=== PATIENT | male | born 1955 | race Hispanic/Latino ===

== ENCOUNTER 2016-09-07 20:44 | Emergency (ER) | payer MEDICAID ==
[2016-09-07 20:50] VITALS: BMI 30.7
[2016-09-07 20:57] VITALS: TEMP 98.6
[2016-09-07] MEDS ORDERED: TDAP Vaccine 0.5 mL Syr IM ONE (21:00)
[2016-09-07] MEDS ORDERED: Multivitamin (MVI) 10 ML, Thiamine 100 MG, Folic Acid 1 MG in Sodium Chloride 0.9% 1,00... IV ONE (21:01)
--- NOTE | 2016-09-07 21:06 | ED PDOC ---
Arrival/HPI <Nolan Mota - Last Filed: 09/07/16 21:09> - General Historian: Patient <Quintin Alfonso - Last Filed: 09/08/16 12:22> - General Chief Complaint: Alcohol Ingestion Time Seen by Provider: 09/07/16 21:00 - History of Present Illness Narrative History of Present Illness (Text): 09/07/16 21:06 61 y/o male, pmh including brain injury, nkda, c/o fall with head and rt. knee injury x 2 hours. Pt. stated that he had 2 cans of beer about 8 hours ago, walking on the uneven side walk and fall to the posterior head and rt. knee region which causes the rt. knee abrasion, no chest pain or shortness of breath , no night sweat, no dizziness, no palpitation, no other medical or psychological complaints. (Quintin Alfonso) Past Medical History - Provider Review Nursing Documentation Reviewed: Yes - Infectious Disease Hx of Infectious Diseases: None - Neurological Other/Comment: Brain injury - Psychiatric Hx Substance Use: No - Anesthesia Hx Anesthesia: No <Quintin Alfonso - Last Filed: 09/08/16 12:22> Family/Social History - Physician Review Nursing Documentation Reviewed: Yes Family/Social History: Unknown Family HX Smoking Status: Light Smoker < 10 Cigarettes Daily Hx Alcohol Use: Yes Frequency of alcohol use: Few days per week Hx Substance Use: No <Quintin Alfonso - Last Filed: 09/08/16 12:22> Allergies/Home Meds <Nolan Mota - Last Filed: 09/07/16 21:09> <Quintin Alfonso - Last Filed: 09/08/16 12:22> Allergies/Adverse Reactions: Allergies No Known Allergies Allergy (Verified 09/07/16 20:50) Review of Systems - Review of Systems Constitutional: absent: Fatigue, Fevers Respiratory: absent: SOB, Cough Cardiovascular: absent: Chest Pain, Palpitations Gastrointestinal: absent: Abdominal Pain, Diarrhea, Nausea, Vomiting Musculoskeletal: Arthralgias. absent: Back Pain, Neck Pain, Joint Swelling, Myalgias Skin: Other (abrasion). absent: Rash, Pruritis, Skin Lesions Neurological: absent: Headache, Dizziness, Focal Weakness, Speech Changes, Facial Droop <Quintin Alfonso - Last Filed: 09/08/16 12:22> Physical Exam - Physical Exam Physical Exam Limitations: Intoxication Vital Signs Reviewed: Yes Temperature: Afebrile Blood Pressure: Normal Pulse: Regular Respiratory Rate: Normal Appearance: Positive for: Well-Appearing, Non-Toxic, Comfortable Pain Distress: None - Systems Exam Head: Present: Atraumatic, Normocephalic, Tenderness, Contusion, Swelling, Other (there is posterior occipital scalp hematom approx. 4cm diameter noted. ) . No: Ecchymosis, Abrasion, Laceration Pupils: Present: PERRL Extroacular Muscles: Present: EOMI Conjunctiva: Present: Normal Ears: Present: NORMAL TM, Normal Canal. No: Erythema Mouth: Present: Moist Mucous Membranes Neck: Present: Normal Range of Motion, Trachea Midline. No: Meningeal Signs, MIDLINE TENDERNESS, Paraspinal Tenderness, Lymphadenopathy Respiratory/Chest: Present: Clear to Auscultation, Good Air Exchange. No: Respiratory Distress, Accessory Muscle Use, Wheezes, Decreased Breath Sounds, Rales, Retracting, Rhonchi, Tachypneic, Tender to Palpation Cardiovascular: Present: Regular Rate and Rhythm, Normal S1, S2. No: Murmurs Abdomen: Present: Normal Bowel Sounds. No: Tenderness, Distention, Peritoneal Signs Back: Present: Normal Inspection Upper Extremity: Present: Normal Inspection. No: Cyanosis, Edema Lower Extremity: Present: Normal Inspection, Other (Rt knee: visible anterior abrasion approx. [id number] with no laceration gap, no oozing or discharge, mild + ttp, negative kenrick and walker signs, +DPPT pulses, capillary refill< 2 seconds, neurovascular intact. ). No: Edema Neurological: Present: GCS=15, Speech Normal, Motor Func Grossly Intact, Gait Normal, Memory Normal Skin: Present: Warm, Dry, Normal Color. No: Rashes Psychiatric: Present: Alert, Oriented x 3, Normal Insight, Normal Concentration <Qiuntin Alfonso - Last Filed: 09/08/16 12:22> Vital Signs Temp Pulse Resp BP Pulse Ox 09/08/16 01:33 92 H 18 123/73 95 09/07/16 23:30 99 H 18 110/70 98 09/07/16 20:56 98.6 F 103 H 20 107/71 97 Medical Decision Making <Nolan Mota - Last Filed: 09/07/16 21:09> - Lab Interpretations I have reviewed the lab results: Yes Interpretation: Abnormal lab values (AST 462, ALT 141, Alcohol 146) - RAD Interpretation Specimen Processor: Radiologist <Quintin Alfonso - Last Filed: 09/08/16 12:22> ED Course and Treatment: 09/07/16 21:05 -Labs -CT head/rt. knee xray -IV banana bag/tdap -Wound irrigate with normal saline, clean with betadine, bacitracin and gauze dressing, observe and reassess -Observe and reassess 09/07/16 23:48 -Labs are non-significant except elevated LFT which is likely from alcohol drinking. -CT head show no acute traumatic findings. -Lt. knee xray show no acute fracture or dislocation. -Pt. is walking with normal gait and posture, etoh level was 141 which is about 3 hours ago which he is clinically sober, request to be discharged home, will discharge home. -Discharge home with bacitracin ointment, naproxen, avoid taking tylenol, follow up with your own pmd and GI within 2 days for elevated liver enzyme, return to the ER for any new or worsening signs or symptoms. (Quintin Alfonso) - Lab Interpretations Lab Results: 09/07/16 09:30 09/07/16 09:30 Lab Results 09/07/16 09:30: Alcohol, Quantitative 146 H 09/07/16 09:30: Sodium 130 L, Potassium 3.7, Chloride 96 L, Carbon Dioxide 21, Anion Gap 17, BUN 8, Creatinine 0.6, Est GFR ( Amer) > 60, Est GFR (Non- Af Amer) > 60, Random Glucose 84, Calcium 8.2 L, Magnesium 1.9, Total Bilirubin 1.5 H, AST 462 H, ALT 141 H, Alkaline Phosphatase 85, Total Protein 7.5, Albumin 3.0, Globulin 4.5, Albumin/Globulin Ratio 0.7 L 09/07/16 09:30: WBC 5.5, RBC 3.12 L, Hgb 10.7 L, Hct 30.7 L, MCV 98.4, MCH 34.3 , MCHC 34.9, RDW 15.0 H, Plt Count 201, MPV 9.6, Gran % 63.5, Lymph % (Auto) 22.3, [place] % (Auto) 11.2 H, Eos % (Auto) 2.5, Baso % (Auto) 0.5, Gran # 3.50, Lymph # 1.2, [place] # 0.6, Eos # 0.1, Baso # 0.03 - RAD Interpretation Radiology Orders: 09/07/16 21:00 HEAD W/O CONTRAST [CT] Stat KNEE W PATELLA RIGHT 3 VIEW [RAD] Stat Rt. knee xray: no acute fracture or dislocation CT Head: no acute traumatic findings. (Quintin Alfonso) - Medication Orders Current Medication Orders: Discontinued Medications Multivitamins/Vitamin C 10 ml/Thiamine HCl 100 mg/ Folic Acid 1 mg/ Sodium Chloride 1,011.2 mls @ 250 mls/hr IV .Q4H3M ONE Stop: 09/08/16 01:03 Last Admin: 09/07/16 21:40 Dose: 250 mls/hr Tetanus/Reduced Diphtheria/Acell Pertussis (Boostrix Vaccine Inj) 0.5 ml IM .ONCE ONE Stop: 09/07/16 21:01 Last Admin: 09/07/16 21:40 Dose: 0.5 ml - PA / SAW FEEDER / Resident Statement SURJIT has reviewed & agrees with the documentation as recorded. SURJIT has examined the patient and agrees with the treatment plan. <Nolan Mota - Last Filed: 09/07/16 21:09> - PA / SAW FEEDER / Resident Statement SURJIT has reviewed & agrees with the documentation as recorded. <Quintin Alfonso - Last Filed: 09/08/16 12:22> Disposition/Present on Arrival <Nolan Mota - Last Filed: 09/07/16 21:09> - Present on Arrival Any Indicators Present on Arrival: No History of DVT/PE: No History of Uncontrolled Diabetes: No Urinary Catheter: No History of Decub. Ulcer: No History Surgical Site Infection Following: None - Disposition Have Diagnosis and Disposition been Completed?: Yes Disposition Time: 23:52 Patient Plan: Discharge <Quintin Alfonso - Last Filed: 09/08/16 12:22> - Disposition Diagnosis: Knee abrasion, Scalp hematoma, Alcohol intoxication Disposition: HOME/ ROUTINE Condition: GOOD Additional Instructions: -Discharge home with bacitracin ointment, naproxen, avoid taking tylenol, follow up with your own pmd and GI within 2 days for elevated liver enzyme, return to the ER for any new or worsening signs or symptoms. Prescriptions: Bacitracin Ointment [Bacitracin] 1 appful TOP BID #30 g Naproxen 500 mg PO BID PRN #20 tab PRN Reason: Other Referrals: Praful Pedraza MD [Primary Care Provider] - Follow up with primary Nita Jones MD [Medical Doctor] - Follow up with primary Forms: [employer] ([place]), WORK NOTE
[2016-09-07 21:42] LABS: BASO # 0.03 K/mm3 (0.0-2.0); BASO % 0.5 % (0.0-3.0); EOS # 0.1 (0.0-0.7); EOS % 2.5 % (1.5-5.0); GRAN % 63.5 % (50.0-68.0); HEMOGLOBIN 10.7 gm/dL (14.0-18.0); LYMPH # 1.2 (1.2-3.4); LYMPH % 22.3 % (22.0-35.0); MEAN CELL VOLUME 98.4 fL (80.0-105.0); MEAN CORPUSCULAR HEMOGLOBIN 34.3 pg (25.0-35.0); MEAN CORPUSCULAR HGB CONC 34.9 g/dl (31.0-37.0); MEAN PLATELET VOLUME 9.6 fl (7.0-11.0); MONO # 0.6 (0.1-0.6); MONO % 11.2 % (1.0-6.0); PLATELET COUNT 201 10^3/uL (120.0-450.0); RBC 3.12 10^6/uL (3.5-6.1); WHITE BLOOD COUNT 5.5 10^3/ul (4.5-11.0)
[2016-09-07 21:51] LABS: ALB/GLOB RATIO 0.7 (1.1-1.8); ALT/SGPT 141 U/L (7-56); AST/SGOT 462 U/L (15-59); BLOOD UREA NITROGEN 8 mg/dL (7-21); CALCIUM 8.2 mg/dL (8.4-10.5); GFR AFRICAN-AMERICAN > 60; GFR NON-AFRICAN AMERICAN > 60; MAGNESIUM 1.9 mg/dL (1.7-2.2)
--- NOTE | 2016-09-07 22:27 | CT ---
EXAM: CT Head Without Intravenous Contrast CLINICAL HISTORY: 61 years old, male; Injury or trauma; Fall; Initial encounter; Sprain or strain; Additional info: Posterior head injury, ETOH intoxication TECHNIQUE: Axial computed tomography images of the head/brain without intravenous contrast. This CT exam was performed using one or more of the following dose reduction techniques: automated exposure control, adjustment of the mA and/or kV according to patient size, and/or use of iterative reconstruction technique. COMPARISON: No relevant prior studies available. FINDINGS: Brain: No acute intracranial hemorrhage. No significant white matter disease. No edema. Ventricles: No significant ventriculomegaly. Bones: No acute displaced fracture. Sinuses: Unremarkable as visualized. No acute sinusitis. Mastoid air cells: Unremarkable as visualized. No mastoid effusion. IMPRESSION: No acute intracranial hemorrhage, or suspicious mass effect.
[2016-09-08 01:33] VITALS: BP 123/73; PULSE 92; RESP 18; O2SAT 95
--- NOTE | 2016-09-08 11:58 | RAD ---
PROCEDURE: Right Knee Radiographs. HISTORY: rt. knee abrasion and injury COMPARISON: None. FINDINGS: BONES: Normal. No fracture. JOINTS: Medial femorotibial compartment narrowing is appreciated suggesting chondromalacia. JOINT EFFUSION: None. OTHER FINDINGS: Soft tissue edema seen lateral to the patella in the sunrise view. IMPRESSION: No acute fracture dislocation. Limited degenerate joint disease appreciated as well as medial soft tissue edema.
== END 2016-09-08 01:36 | disposition home or self-care (01) ==
LOC: ED 20:44
DX: S00.03XA Contusion of scalp, initial encounter (principal); S80.211A Abrasion, right knee, initial encounter; W01.0XXA Fall on same level from slipping, tripping and stumbling without subsequent striking against object, initial encounter; Y93.01 Activity, walking, marching and hiking; Y92.480 Sidewalk as the place of occurrence of the external cause; F10.129 Alcohol abuse with intoxication, unspecified; Y90.6 Blood alcohol level of 120-199 mg/100 ml; Z23 Encounter for immunization
CPT/HCPCS: 70450; 73562; 80053; 80320; 83735; 85025; 90471; 90715; 96374; 99284; J3411; J7040

== ENCOUNTER 2016-10-15 15:39 | Emergency (ER) | payer MEDICAID ==
--- NOTE | 2016-10-15 15:59 | ED PDOC ---
Arrival/HPI - General Historian: Patient <Quintin Alfonso - Last Filed: 10/16/16 00:50> <Nolan Mota - Last Filed: 10/16/16 01:43> - General Time Seen by Provider: 10/15/16 15:48 - History of Present Illness Narrative History of Present Illness (Text): 10/15/16 15:56 61 y/o male, limited HPI can be obtained as the patient as etoh on breath, GCS 13 (inapproriate words), last tetanus which is less than 2 months ago with abrasion wound, biba for etoh intoxication and fall on the face. Pt. stated that he was drinking earlier this afternoon, tripped over uneven curbed, admits drinking, fall on the frontal forehead and facial cheek region, sustained abrasion, no LOC, able to recall the whole event, no chest pain or shortness of breath, no palpitation, no night sweat, no abdominal pain, no rash, no other medical or psychological complaints. (Quintin Alfonso) Past Medical History - Provider Review Nursing Documentation Reviewed: Yes - Infectious Disease Hx of Infectious Diseases: None - Neurological Other/Comment: Brain injury - Psychiatric Hx Substance Use: No - Anesthesia Hx Anesthesia: No <Quintin Alfonso - Last Filed: 10/16/16 00:50> Family/Social History - Physician Review Nursing Documentation Reviewed: Yes Family/Social History: Unknown Family HX Smoking Status: Light Smoker < 10 Cigarettes Daily Hx Alcohol Use: Yes Hx Substance Use: No <Quintin Alfonso - Last Filed: 10/16/16 00:50> Allergies/Home Meds <Quintin Alfonso - Last Filed: 10/16/16 00:50> <Nolan Mota - Last Filed: 10/16/16 01:43> Allergies/Adverse Reactions: Allergies No Known Allergies Allergy (Verified 10/15/16 16:05) Home Medications: Home Meds Medication Instructions Recorded Confirmed Unobtainable 10/15/16 10/15/16 Review of Systems - Review of Systems Systems not reviewed;Unavailable: Intoxicated Constitutional: absent: Fatigue, Weight Change Eyes: absent: Vision Changes ENT: absent: Hearing Changes Respiratory: absent: SOB, Cough Cardiovascular: absent: Chest Pain Musculoskeletal: absent: Arthralgias, Back Pain Skin: Other (abrasion). absent: Rash, Pruritis, Skin Lesions, Laceration, Abscess, Ulcer Neurological: absent: Headache, Dizziness Psychiatric: absent: Anxiety, Depression <Quintin Alfonso Q - Last Filed: 10/16/16 00:50> Physical Exam - Physical Exam Physical Exam Limitations: Intoxication Vital Signs Reviewed: Yes Temperature: Afebrile Blood Pressure: Normal Pulse: Regular Respiratory Rate: Normal Appearance: Positive for: Well-Appearing, Non-Toxic, Comfortable Pain Distress: None Mental Status: Positive for: other (intoxicated, GCS 13) - Systems Exam Head: Present: Tenderness, Contusion, Abrasion (frontal forehead), Other (Facial : +ttp on the bilateral periorbital and lower chin region, visible superficial abrasin approx. 1cm diameter noted on the frontal forehead/chin/bilateral facial cheek). No: Ecchymosis, Laceration Pupils: Present: PERRL Extroacular Muscles: Present: EOMI Conjunctiva: Present: Normal Ears: Present: NORMAL TM, Normal Canal. No: Erythema Mouth: Present: Moist Mucous Membranes Neck: Present: Normal Range of Motion, Trachea Midline. No: Meningeal Signs, MIDLINE TENDERNESS, Paraspinal Tenderness, Lymphadenopathy Respiratory/Chest: Present: Clear to Auscultation, Good Air Exchange. No: Respiratory Distress, Accessory Muscle Use Cardiovascular: Present: Regular Rate and Rhythm, Normal S1, S2. No: Murmurs Abdomen: Present: Normal Bowel Sounds. No: Tenderness, Distention, Peritoneal Signs, Rebound, Guarding Back: Present: Normal Inspection. No: CVA Tenderness, Midline Tenderness, Paraspinal Tenderness, Pain with Leg Raise Upper Extremity: Present: Normal Inspection, Normal ROM, NORMAL PULSES, Neurovascularly Intact, Capillary Refill < 2s. No: Cyanosis, Edema, Tenderness , Swelling, Deformity Lower Extremity: Present: Normal Inspection, Normal ROM. No: Edema, Tenderness , Swelling, Deformity Neurological: Present: Speech Normal, Motor Func Grossly Intact, Memory Normal. No: GCS=15 (GCS 13 (inappropriate word use)) Skin: Present: Warm, Dry, Normal Color. No: Rashes Psychiatric: Present: Alert, Intoxicated <Quintin Alfonso - Last Filed: 10/16/16 00:50> Medical Decision Making - Lab Interpretations I have reviewed the lab results: Yes - RAD Interpretation Senior Financial: Radiologist <Quintin Alfonso - Last Filed: 10/16/16 00:50> <Nolan Mota - Last Filed: 10/16/16 01:43> ED Course and Treatment: 10/15/16 15:59 -GCS 13 -CT head/facial -Labs -IV Banana bag -wound irrigate with normal saline, clean with betadine, bacitracin and gauze dressing. -Observe and reassess 10/15/16 17:16 -Pt. is agitated, threatened to leave but intoxicated, ativan 2mg IV order to sedate the patient, will observe with cafeteria monitor. 10/15/16 17:50 -CT head and facial results reviewed and discussed with DR. Mcgraw and radiologist Dr. Flores, suggest this will need OMFS and trauma evaluation as this is traumatic fall with no previous images and limited obtainable history from the patient. -Dr. Mcgraw evaluated the patient and suggest this will need trauma transfer. 10/15/16 19:38 -[facility] trauma surgeon Dr. Anastasia Fowler contacted, spoke to the current ER attending Dr. Moat, discussed about the CT results and GCS 13 ( inappropriate use of words), no previous imaging, history can not be obtained fully from the patient, will need higher level of care with further evaluation. -All CT images burned and will be given to the transfer team. (Quintin Alfonso) - Lab Interpretations Lab Results: 10/15/16 16:20 10/15/16 16:20 Lab Results 10/15/16 18:42: Salicylates < 1 L, Acetaminophen < 10.0 L 10/15/16 18:42: Alcohol, Quantitative 258 H 10/15/16 18:40: PT 14.7 H, INR 1.36 H, APTT 31.0 H 10/15/16 16:20: WBC 5.0, RBC 3.49 L, Hgb 10.9 L, Hct 32.1 L, MCV 92.0, MCH 31.2 , MCHC 34.0, RDW 15.2 H, Plt Count 172, MPV 10.0, Gran % 44.3 L, Lymph % (Auto) 42.6 H, [place] % (Auto) 11.1 H, Eos % (Auto) 1.4 L, Baso % (Auto) 0.6, Gran # 2.19 , Lymph # 2.1, [place] # 0.6, Eos # 0.1, Baso # 0.03 10/15/16 16:20: Sodium 144, Potassium 3.5 L, Chloride 111 H, Carbon Dioxide 22, Anion Gap 15, BUN 5 L, Creatinine 0.6, Est GFR ( Amer) > 60, Est GFR (Non -Af Amer) > 60, Random Glucose 74, Calcium 8.1 L, Magnesium 1.9, Total Bilirubin 0.9, AST 110 H, ALT 32, Alkaline Phosphatase 107, Total Protein 7.4, Albumin 3.0, Globulin 4.4, Albumin/Globulin Ratio 0.7 L - RAD Interpretation Radiology Orders: 10/15/16 16:09 HEAD W/O CONTRAST [CT] Stat MAXILLOFACIAL W/O CONTRAST [CT] Stat CT Head: PROCEDURE: CT HEAD WITHOUT CONTRAST. HISTORY: etoh, fall, abrasions COMPARISON: None available. TECHNIQUE: Axial computed tomography images were obtained through the head/brain without intravenous contrast. Radiation dose: Total exam DLP = 774.23 mGy-cm. This CT exam was performed using one or more of the following dose reduction techniques: Automated exposure control, adjustment of the mA and/or kV according to patient size, and/or use of iterative reconstruction technique. FINDINGS: HEMORRHAGE: No acute parenchymal, subarachnoid nor extra-axial hemorrhage. BRAIN: There appears to be some very minor chronic periventricular white matter ischemic changes that extend peripherally into the deep white matter both cerebral hemispheres. . Moderate generalized volume loss evidenced by enlargement of the ventricles and sulci. . Very minor partially calcified atherosclerotic plaque changes along the cavernous carotid arteries. VENTRICLES: No obstructive hydrocephalus. CALVARIUM: There are apparent chronic fractures involving the lateral and medial margins of the right orbital roof which extends superiorly into the right frontal calvarium. . Note that the fracture of the lateral orbital roof extends superiorly into the frontal calvarium there is a fracture of the medial aspect of the right intraorbital -lamina papyracea extending medially and diagonally through the anterior ethmoid air cell. Partial collapse of the superior nasal bones/ bridge of the nose -glabella region and extending through the frontal calvarium along the mid frontal sinus region. . There also are fractures traversing the left orbital roof. . Mild left periorbital soft tissue swelling extends superiorly into the supraorbital and left frontotemporal scalp region. Questionable old healed fracture deformity of the right frontotemporal PARANASAL SINUSES: Unremarkable as visualized. No significant inflammatory changes. MASTOID AIR CELLS: Unremarkable as visualized. No inflammatory changes. OTHER FINDINGS: None. IMPRESSION: No acute intracranial hemorrhage. Mild chronic periventricular white matter ischemic changes moderate volume loss. There are multiple presumed old facial fractures as well as fractures of the orbital roofs of on the right side extending superiorly into the right frontal calvarium. See above discussion for additional details. Note these findings were discussed with emergency room CHARITY Alfonso at approximately 5:38 p.m. with written down and read back verification. CT Maxillofacial: PROCEDURE: CT scan maxillofacial skeleton 10/15/2016 HISTORY: ETOH. , fall, abrasions COMPARISON: Correlation made with concurrent CT scan brain. TECHNIQUE: Contiguous helical/transaxial CT images of the maxillofacial bones were obtained. Coronal and sagittal reformats were generated. Radiation dose: Total exam DLP = 799.67 mGy-cm. This CT exam was performed using one or more of the following dose reduction techniques: Automated exposure control, adjustment of the mA and/or kV according to patient size, and/or use of iterative reconstruction technique. . FINDINGS: Findings: There are apparent chronic fractures involving the lateral and medial margins of the right orbital roof which extends superiorly into the right frontal calvarium. there is a fracture of the medial aspect of the right intraorbital - lamina papyracea extending medially and diagonally through the anterior ethmoid air cell. Partial collapse of the superior nasal bones/ bridge of the nose - glabella region and extending through the frontal calvarium along the mid frontal sinus region. . There also are fractures traversing the left orbital roof also appears chronic as well however clinical correlation recommended. Consider consultation by a maxillofacial skeletal surgeon or bleach machine operator. Mild left periorbital soft tissue swelling extends superiorly into the supraorbital and left frontotemporal scalp region. . The orbital contents intact. Globes intact and lenses appropriately located. There are no retrobulbar hemorrhages or collections seen. The visualized paranasal sinuses are well-developed and currently well-aerated. No fluid levels seen to suggest acute hemorrhage or sinusitis. Minimal mucosal thickening present within the floor of the right and to a lesser degree left maxillary antrum. Minimal mucosal thickening noted within a few ethmoid air cells. Prominent right mary bullosa. Mandible appears intact. Patient is edentulous. Impression: Multiple chronic facial and calvarial fractures as described. Mild left periorbital soft tissue swelling. Note these findings were discussed with emergency room CHARITY Alfonso at approximately 5:38 p.m. with written down and read back verification. (Quintin Alfonso) - Medication Orders Current Medication Orders: Discontinued Medications Multivitamins/Vitamin C 10 ml/Thiamine HCl 100 mg/ Folic Acid 1 mg/ Sodium Chloride 1,011.2 mls @ 1,000 mls/hr IV .Q1H1M ONE Stop: 10/15/16 17:09 Last Admin: 10/15/16 17:19 Dose: 1,000 mls/hr Lorazepam (Ativan) 2 mg IVP ONCE ONE PRN Reason: Protocol Stop: 10/15/16 17:17 Last Admin: 10/15/16 17:26 Dose: 2 mg Potassium Chloride (K-Dur 20 Meq Er Tab) 20 meq PO STAT STA Stop: 10/15/16 17:58 Last Admin: 10/15/16 18:37 Dose: 20 meq - PA / DIESEL RETROFIT DESIGNER / Resident Statement SURJIT has reviewed & agrees with the documentation as recorded. SURJIT has examined the patient and agrees with the treatment plan. <Quintin Alfonso - Last Filed: 10/16/16 00:50> - PA / DIESEL RETROFIT DESIGNER / Resident Statement SURJIT has reviewed & agrees with the documentation as recorded. <Nolan Mota - Last Filed: 10/16/16 01:43> Disposition/Present on Arrival - Present on Arrival Any Indicators Present on Arrival: No History of DVT/PE: No History of Uncontrolled Diabetes: No Urinary Catheter: No History of Decub. Ulcer: No History Surgical Site Infection Following: None - Disposition Have Diagnosis and Disposition been Completed?: Yes Disposition Time: 19:41 Patient Plan: Transfer To ([facility], [place]) <Quintin Alfonso - Last Filed: 10/16/16 00:50> <Nolan Mota - Last Filed: 10/16/16 01:43> - Disposition Diagnosis: Alcohol intoxication, Fall, Abrasion, Facial fracture, Calvarial fracture Disposition: OTHER INSTITUTION Condition: GUARDED Referrals: Praful Pedraza MD [Primary Care Provider] - Follow up with primary Forms: [employer] ([place]ian)
[2016-10-15 16:05] VITALS: BMI 27.1
[2016-10-15] MEDS ORDERED: Multivitamin (MVI) 10 ML, Thiamine 100 MG, Folic Acid 1 MG in Sodium Chloride 0.9% 1,00... IV ONE (16:09)
[2016-10-15 16:37] LABS: BASO # 0.03 K/mm3 (0.0-2.0); BASO % 0.6 % (0.0-3.0); EOS # 0.1 (0.0-0.7); EOS % 1.4 % (1.5-5.0); GRAN # 2.19 (1.4-6.5); GRAN % 44.3 % (50.0-68.0); HEMATOCRIT 32.1 % (42.0-52.0); LYMPH # 2.1 (1.2-3.4); LYMPH % 42.6 % (22.0-35.0); MEAN CORPUSCULAR HEMOGLOBIN 31.2 pg (25.0-35.0); MONO # 0.6 (0.1-0.6); MONO % 11.1 % (1.0-6.0); RED CELL DISTRIBUTION WIDTH 15.2 % (11.5-14.5)
[2016-10-15 16:49] LABS: ALB/GLOB RATIO 0.7 (1.1-1.8); ALKALINE PHOSPHATASE 107 U/L (38-126); ALT/SGPT 32 U/L (7-56); AST/SGOT 110 U/L (17-59); BILIRUBIN,TOTAL 0.9 mg/dL (0.2-1.3); BLOOD UREA NITROGEN 5 mg/dL (7-21); CALCIUM 8.1 mg/dL (8.4-10.5); CARBON DIOXIDE 22 mmol/L (21-33); CHLORIDE 111 mmol/L (98-107); GFR AFRICAN-AMERICAN > 60; GLUCOSE,RANDOM 74 mg/dL (70-110); MAGNESIUM 1.9 mg/dL (1.7-2.2); POTASSIUM 3.5 mmol/L (3.6-5.0); SODIUM 144 mmol/L (132-148); TOTAL PROTEIN 7.4 g/dL (5.8-8.3)
--- NOTE | 2016-10-15 17:44 | CT ---
PROCEDURE: CT scan maxillofacial skeleton 10/15/2016 HISTORY: ETOH. , fall, abrasions COMPARISON: Correlation made with concurrent CT scan brain. TECHNIQUE: Contiguous helical/transaxial CT images of the maxillofacial bones were obtained. Coronal and sagittal reformats were generated. Radiation dose: Total exam DLP = 799.67 mGy-cm. This CT exam was performed using one or more of the following dose reduction techniques: Automated exposure control, adjustment of the mA and/or kV according to patient size, and/or use of iterative reconstruction technique. . FINDINGS: Findings: There are apparent chronic fractures involving the lateral and medial margins of the right orbital roof which extends superiorly into the right frontal calvarium. there is a fracture of the medial aspect of the right intraorbital -lamina papyracea extending medially and diagonally through the anterior ethmoid air cell. Partial collapse of the superior nasal bones/ bridge of the nose -glabella region and extending through the frontal calvarium along the mid frontal sinus region. . There also are fractures traversing the left orbital roof also appears chronic as well however clinical correlation recommended. Consider consultation by a maxillofacial skeletal surgeon or cell plasterer. Mild left periorbital soft tissue swelling extends superiorly into the supraorbital and left frontotemporal scalp region. . The orbital contents intact. Globes intact and lenses appropriately located. There are no retrobulbar hemorrhages or collections seen. The visualized paranasal sinuses are well-developed and currently well-aerated. No fluid levels seen to suggest acute hemorrhage or sinusitis. Minimal mucosal thickening present within the floor of the right and to a lesser degree left maxillary antrum. Minimal mucosal thickening noted within a few ethmoid air cells. Prominent right mary bullosa. Mandible appears intact. Patient is edentulous. Impression: Multiple chronic facial and calvarial fractures as described. Mild left periorbital soft tissue swelling. Note these findings were discussed with emergency room CHARITY Alfonso at approximately 5:38 p.m. with written down and read back verification.
--- NOTE | 2016-10-15 17:45 | CT ---
PROCEDURE: CT HEAD WITHOUT CONTRAST. HISTORY: etoh, fall, abrasions COMPARISON: None available. TECHNIQUE: Axial computed tomography images were obtained through the head/brain without intravenous contrast. Radiation dose: Total exam DLP = 774.23 mGy-cm. This CT exam was performed using one or more of the following dose reduction techniques: Automated exposure control, adjustment of the mA and/or kV according to patient size, and/or use of iterative reconstruction technique. FINDINGS: HEMORRHAGE: No acute parenchymal, subarachnoid nor extra-axial hemorrhage. BRAIN: There appears to be some very minor chronic periventricular white matter ischemic changes that extend peripherally into the deep white matter both cerebral hemispheres. . Moderate generalized volume loss evidenced by enlargement of the ventricles and sulci. . Very minor partially calcified atherosclerotic plaque changes along the cavernous carotid arteries. VENTRICLES: No obstructive hydrocephalus. CALVARIUM: There are apparent chronic fractures involving the lateral and medial margins of the right orbital roof which extends superiorly into the right frontal calvarium. . Note that the fracture of the lateral orbital roof extends superiorly into the frontal calvarium there is a fracture of the medial aspect of the right intraorbital -lamina papyracea extending medially and diagonally through the anterior ethmoid air cell. Partial collapse of the superior nasal bones/ bridge of the nose -glabella region and extending through the frontal calvarium along the mid frontal sinus region. . There also are fractures traversing the left orbital roof. . Mild left periorbital soft tissue swelling extends superiorly into the supraorbital and left frontotemporal scalp region. Questionable old healed fracture deformity of the right frontotemporal PARANASAL SINUSES: Unremarkable as visualized. No significant inflammatory changes. MASTOID AIR CELLS: Unremarkable as visualized. No inflammatory changes. OTHER FINDINGS: None. IMPRESSION: No acute intracranial hemorrhage. Mild chronic periventricular white matter ischemic changes moderate volume loss. There are multiple presumed old facial fractures as well as fractures of the orbital roofs of on the right side extending superiorly into the right frontal calvarium. See above discussion for additional details. Note these findings were discussed with emergency room CHARITY Alfonso at approximately 5:38 p.m. with written down and read back verification.
[2016-10-15] MEDS ORDERED: Potassium Chloride 20 mEq ER Tab PO STA (17:57)
[2016-10-15 19:01] LABS: INR 1.36 (0.93-1.08)
[2016-10-15 20:35] VITALS: BP 141/97; RESP 18; TEMP 98.1
[2016-10-15 21:06] VITALS: PULSE 71; O2SAT 99
== END 2016-10-15 21:07 | disposition short-term general hospital (02) ==
LOC: ED 15:39
DX: S02.92XA Unspecified fracture of facial bones, initial encounter for closed fracture (principal); S02.91XA Unspecified fracture of skull, initial encounter for closed fracture; W01.0XXA Fall on same level from slipping, tripping and stumbling without subsequent striking against object, initial encounter; F10.129 Alcohol abuse with intoxication, unspecified; Y90.8 Blood alcohol level of 240 mg/100 ml or more
CPT/HCPCS: 70450; 70486; 80053; 80320; 80329; 82948; 83735; 85025; 85610; 85730; 96374; 99285; J2060; J3411; J7040

== ENCOUNTER 2017-03-18 13:20 | Emergency (ER) | payer MEDICAID ==
[2017-03-18 13:35] VITALS: RESP 18; TEMP 97.7; BMI 26.4
--- NOTE | 2017-03-18 13:53 | ED PDOC ---
Arrival/HPI - General Chief Complaint: Alcohol Ingestion Time Seen by Provider: 03/18/17 13:21 Historian: Patient, EMS - History of Present Illness Narrative History of Present Illness (Text): 03/18/17 13:48 A 61 year old male brought into the emergency department by EMS for bilateral leg pain after fall today. Reportedly EMS was called after bystanders witnessed patient fall with difficulty standing afterwards. Patient reports he has felt unsteady on his feet and experienced multiple falls over the past several days. Patient denies any other injuries, loss of consciousness, head trauma, headache, dizziness, neck pain, fever, chills, nausea, vomiting, abdominal pain, back pain, chest pain, shortness of breath or any other complaints. Time/Duration: Prior to Arrival Context: Walking Past Medical History - Provider Review Nursing Documentation Reviewed: Yes - Infectious Disease Hx of Infectious Diseases: None - Cardiac Hx Cardiac Disorders: No - Pulmonary Hx Respiratory Disorders: No - Neurological Hx Neurological Disorder: Yes Other/Comment: Brain injury - HEENT Hx HEENT Disorder: No - Renal Hx Renal Disorder: No - Endocrine/Metabolic Hx Endocrine Disorders: No - Hematological/Oncological Hx Blood Disorders: No - Integumentary Hx Dermatological Disorder: No - Musculoskeletal/Rheumatological Hx Musculoskeletal Disorders: Yes Hx Arthritis: Yes Hx Falls: Yes Hx Unsteady Gait: Yes - Gastrointestinal Hx Gastrointestinal Disorders: No - Genitourinary/Gynecological Hx Genitourinary Disorders: No - Psychiatric Hx Psychophysiologic Disorder: No Hx Substance Use: No - Surgical History Hx Orthopedic Surgery: Yes - Anesthesia Hx Anesthesia: No Family/Social History - Physician Review Nursing Documentation Reviewed: Yes Family/Social History: No Known Family HX Smoking Status: Light Smoker < 10 Cigarettes Daily Hx Alcohol Use: Yes Frequency of alcohol use: Daily Hx Substance Use: No Allergies/Home Meds Allergies/Adverse Reactions: Allergies No Known Allergies Allergy (Verified 03/18/17 13:28) Home Medications: Home Meds Medication Instructions Recorded Confirmed Unobtainable 10/15/16 03/18/17 Review of Systems - Review of Systems Constitutional: Fatigue. absent: Fevers, Night Sweats Eyes: absent: Vision Changes, Photophobia, Eye Pain ENT: absent: Hearing Changes, Sore Throat Respiratory: absent: SOB Cardiovascular: absent: Chest Pain, [place] Gastrointestinal: absent: Abdominal Pain, Diarrhea, Nausea, Vomiting, Hematochezia, Hematemesis Genitourinary Male: absent: Dysuria Musculoskeletal: Other (Bilateral leg pain). absent: Back Pain, Neck Pain Skin: absent: Rash Neurological: Gait Changes, Disequilibrium. absent: Headache, Dizziness, Speech Changes, Facial Droop, Seizure Endocrine: absent: Polyuria Hemo/Lymphatic: Easy Bruising Psychiatric: absent: Depression, Suicidal Ideation Physical Exam - Physical Exam Narrative Physical Exam (Text): Head: Abrasion to forehead. No orbital deformity or tenderness. No scalp deformity. Eyes: PERRL. EOMI. Conjunctivae are not pale. ENT: Mucous membranes are moist and intact. Oropharynx is clear and symmetric. Neck: Supple. Full ROM. No JVD. No lymphadenopathy. No midline neck pain. Cardiovascular: Regular rate. Regular rhythm. No murmurs, rubs, or gallops. Distal pulses are 2+ and symmetric. Pulmonary/Chest: No evidence of respiratory distress. Clear to auscultation bilaterally. No wheezing, rales or rhonchi. Abdominal: Soft and non-distended. There is no tenderness. No rebound, guarding, or rigidity. No organomegaly. Good bowel sounds. Back: No CVA tenderness. No midline pain or deformity. Rectal: no melena or active bleeding Extremities: Bilateral lower extremity edema with pain to left medial aspect of knee, no hip or ankle pain, no calf pain, no deformity. Ecchymosis to left knee and proximal tib-fib region. Strong distal pulses. No acute upper extremity pain noted. Skin: Dry mucous membranes. Ecchymosis to left knee with abrasion to knee. Abrasion to forehead. Neurological: Alert, awake, and oriented to person, place, time, and situation. Normal speech. Not slurred. Fine tremor. No asterixis. No nystagmus. No focal weakness in upper or lower extremities. Normal finger to nose. Unsteady gait. Hyperreflexive. Psychiatric: Good eye contact. Normal interaction, affect, and behavior. Denies suicidal or homicidal ideation. Vital Signs Reviewed: Yes Vital Signs Temp Pulse Resp BP Pulse Ox 03/18/17 15:15 72 18 145/93 H 99 03/18/17 13:28 97.7 F 73 18 155/85 H 98 Temperature: Afebrile Blood Pressure: Hypertensive Pulse: Regular Respiratory Rate: Normal Appearance: Positive for: Well-Appearing, Non-Toxic, Comfortable Pain Distress: None Mental Status: Positive for: Alert and Oriented X 3 Medical Decision Making ED Course and Treatment: 03/18/17 13:48 Impression: A 61 year old male with bilateral leg pain after fall. He has history of alcohol abuse, but states "just one beer last night". Differential Diagnosis included but are not limited to: Plan: -- Head CT -- Duplex lower extremity ultrasound -- Left knee xray -- EKG -- Labs -- Urinalysis -- Reassess and disposition Progress Notes: Patient has abrasions and bruising noted to left leg and forehead. He reports that he fell "a few days ago" but did not seek evaluation. By history he has "been falling a lot". On exam he is tremulous, not tachycardic. CT head ordered as history of frequent falling with head injury and alcohol abuse: Report Date : 03/18/2017 14:51:48 PROCEDURE: CT HEAD WITHOUT CONTRAST. Dictator : Desmond Ferris MD IMPRESSION: No intracranial hemorrhage. Mild age-appropriate atrophy. Otherwise unremarkable. Patient on re-evaluation with no change in neurological status. Hypernatremia noted, cannot exclude symptomatic hypernatremia in conjunction with alcohol abuse/intoxication. Denies change in appetite, denies drugs of abuse and denies any new medication. Will admit for monitoring due to risk of alcohol withdrawal, as well as evaluation for possible symptomatic hypernatremia. Report Date : 03/18/2017 15:08:50 PROCEDURE: Left Knee Radiographs. Dictator : Atul Walker MD IMPRESSION: Normal radiographs of the left knee. Report Date : 03/18/2017 15:13:23 Procedure: Duplex lower extremity ultrasound Dictator : Desmond Roy MD IMPRESSION: No sonographic evidence for deep venous thrombosis in the visualized segments of both lower extremities. Report Date : 03/18/2017 17:41:04 Procedure: Chest xray Dictator : Ori Mcgill MD IMPRESSION: No active disease. - Lab Interpretations Lab Results: 03/18/17 14:10 03/18/17 14:10 Lab Results 03/18/17 14:16: Ur Random Sodium 20, Ur Random Potassium 4.6, Urine Opiates Screen Negative, Urine Methadone Screen Negative, Ur Barbiturates Screen Negative, Ur Phencyclidine Scrn Negative, Ur Amphetamines Screen Negative, U Benzodiazepines Scrn Negative, U Oth Cocaine Metabols Negative, U Cannabinoids Screen Negative 03/18/17 14:16: Urine Color Yellow, Urine Appearance Clear, Urine pH 6.0, Ur Specific [place] <= 1.005, Urine Protein Negative, Urine Glucose (UA) Negative, Urine Ketones Negative, Urine Blood Negative, Urine Nitrate Negative, Urine Bilirubin Negative, Urine Urobilinogen 0.2, Ur Leukocyte Esterase Negative 03/18/17 14:10: NT-Pro-B Natriuret Pep 146 03/18/17 14:10: Alcohol, Quantitative 288 H 03/18/17 14:10: PT 15.0 H, INR 1.31 H, APTT 36.0 03/18/17 14:10: WBC 5.9, RBC 4.16, Hgb 13.0 L D, Hct 38.8 L, MCV 93.3, MCH 31.3 , MCHC 33.5, RDW 16.0 H, Plt Count 177, MPV 10.0, Gran % 55.5, Lymph % (Auto) 33.1, Crisp % (Auto) 8.3 H, Eos % (Auto) 1.9, Baso % (Auto) 1.2, Gran # 3.27, Lymph # (Auto) 2.0, Crisp # (Auto) 0.5, Eos # (Auto) 0.1, Baso # (Auto) 0.07 03/18/17 14:10: Sodium 154 H, Potassium 3.6, Chloride 113 H, Carbon Dioxide 27, Anion Gap 18, BUN 12, Creatinine 0.6 L, Est GFR ( Amer) > 60, Est GFR ( Non-Af Amer) > 60, Random Glucose 80, Calcium 8.9, Total Bilirubin 0.8, AST 190 H D, ALT 99 H, Alkaline Phosphatase 98, Total Creatine Kinase 287 H, CK-MB (CK-2 ) 3.2, CK-MB (CK-2) % Cancelled, Total Protein 8.3, Albumin 3.8, Globulin 4.5, Albumin/Globulin Ratio 0.8 L 03/18/17 13:53: POC Glucose (mg/dL) 63 L I have reviewed the lab results: Yes - RAD Interpretation Radiology Orders: 03/18/17 13:38 HEAD W/O CONTRAST [CT] Stat KNEE LEFT 2 VIEWS (AP & LAT) [RAD] Stat 03/18/17 13:55 DUPLEX LOWER EXTRM VEIN BILAT [US] Stat - Medication Orders Current Medication Orders: Cyanocobalamin (Vitamin B12 100 Mcg Tab) 100 mcg PO DAILY BENNY Famotidine (Pepcid) 20 mg PO 1000,2200 BENNY Folic Acid (Folic Acid) 1 mg PO DAILY BENNY Sodium Chloride (Sodium Chloride 0.45%) 1,000 mls @ 150 mls/hr IV .Q6H40M BENNY Lorazepam (Ativan) 2 mg IVP Q3H PRN; Protocol PRN Reason: Symptoms of alcohol withdrawl Nicotine (Nicoderm Cq) 1 patch TD DAILY BENNY Thiamine HCl (Vitamin B1 Tab) 100 mg PO DAILY BENNY Discontinued Medications Folic Acid (Folic Acid) 1 mg PO STAT STA Stop: 03/18/17 16:27 Sodium Chloride (Sodium Chloride 0.45%) 1,000 mls @ 100 mls/hr IV .Q10H BENNY Last Admin: 03/18/17 15:18 Dose: 100 mls/hr eMAR Start Stop Document 03/18/17 15:18 SRE (Rec: 03/18/17 15:18 SRE [id number]) Intravenous Solution Start Date 03/18/17 Start Time 15:18 End Date 03/18/17 - Scribe Statement The provider has reviewed the documentation as recorded by the Robb [place] Provider Scribe Attestation: All medical record entries made by the Scribe were at my direction and personally dictated by me. I have reviewed the chart and agree that the record accurately reflects my personal performance of the history, physical exam, medical decision making, and the department course for this patient. I have also personally directed, reviewed, and agree with the discharge instructions and disposition. Disposition/Present on Arrival - Present on Arrival Any Indicators Present on Arrival: No History of DVT/PE: No History of Uncontrolled Diabetes: No Urinary Catheter: No History of Decub. Ulcer: No History Surgical Site Infection Following: None - Disposition Have Diagnosis and Disposition been Completed?: Yes Diagnosis: Hypernatremia, Ataxia, Alcohol intoxication Disposition: HOSPITALIZED Disposition Time: 14:45 Patient Plan: Admission, Telemetry Patient Problems: Current Active Problems Problem Status Onset Alcohol intoxication Acute Ataxia Acute Hypernatremia Acute Condition: FAIR
[2017-03-18 14:21] LABS: BASO # 0.07 K/mm3 (0.0-2.0); BASO % 1.2 % (0.0-3.0); EOS # 0.1 (0.0-0.7); EOS % 1.9 % (1.5-5.0); GRAN # 3.27 (1.4-6.5); GRAN % 55.5 % (50.0-68.0); LYMPH % 33.1 % (22.0-35.0); MEAN CELL VOLUME 93.3 fl (80.0-105.0); MEAN CORPUSCULAR HEMOGLOBIN 31.3 pg (25.0-35.0); MEAN CORPUSCULAR HGB CONC 33.5 g/dl (31.0-37.0); MONO # 0.5 (0.1-0.6); MONO % 8.3 % (1.0-6.0); RBC 4.16 10^6/uL (3.5-6.1); WHITE BLOOD COUNT 5.9 10^3/ul (4.5-11.0)
[2017-03-18 14:30] LABS: ALB/GLOB RATIO 0.8 (1.1-1.8); ALBUMIN 3.8 g/dL (3.0-4.8); ALT/SGPT 99 U/L (7-56); AST/SGOT 190 U/L (17-59); BLOOD UREA NITROGEN 12 mg/dL (7-21); CALCIUM 8.9 mg/dL (8.4-10.5); GFR AFRICAN-AMERICAN > 60; GFR NON-AFRICAN AMERICAN > 60
[2017-03-18 14:35] LABS: INR 1.31 (0.93-1.08)
--- NOTE | 2017-03-18 14:53 | CT ---
PROCEDURE: CT HEAD WITHOUT CONTRAST. HISTORY: head injury, etoh COMPARISON: 10/15/2016 TECHNIQUE: Axial computed tomography images were obtained through the head/brain without intravenous contrast. Radiation dose: Total exam DLP = 719.21 mGy-cm. This CT exam was performed using one or more of the following dose reduction techniques: Automated exposure control, adjustment of the mA and/or kV according to patient size, and/or use of iterative reconstruction technique. FINDINGS: HEMORRHAGE: No intracranial hemorrhage. BRAIN: No intracranial mass. Mild age-appropriate diffuse cerebral atrophy. No significant microvascular change. VENTRICLES: Unremarkable. No hydrocephalus. CALVARIUM: Unremarkable. PARANASAL SINUSES: Unremarkable as visualized. No significant inflammatory changes. MASTOID AIR CELLS: Unremarkable as visualized. No inflammatory changes. OTHER FINDINGS: None. IMPRESSION: No intracranial hemorrhage. Mild age-appropriate atrophy. Otherwise unremarkable.
[2017-03-18 14:59] LABS: CK-MB 3.2 ng/mL (0.0-3.6)
--- NOTE | 2017-03-18 15:10 | RAD ---
PROCEDURE: Left Knee Radiographs. HISTORY: Pain. COMPARISON: None. FINDINGS: BONES: Normal. No fracture. JOINTS: Normal. No osteoarthritis. JOINT EFFUSION: None. OTHER FINDINGS: None. IMPRESSION: Normal radiographs of the left knee.
[2017-03-18] MEDS ORDERED: Sodium Chloride 0.45% 1,000 ML IV SCH ×2 (15:15→16:44)
[2017-03-18 15:16] LABS: URINE APPEARANCE CLEAR (CLEAR); URINE BILIRUBIN NEGATIVE (NEGATIVE); URINE BLOOD NEGATIVE (NEGATIVE); URINE COLOR YELLOW (YELLOW); URINE GLUCOSE (UA) NEGATIVE (NEGATIVE); URINE LEUKOCYTE ESTERASE NEGATIVE Leu/uL (NEGATIVE); URINE NITRATE NEGATIVE (NEGATIVE); URINE PROTEIN NEGATIVE mg/dL (<30 mg/dL); URINE UROBILINOGEN 0.2 E.U./dL (<1 E.U./dL)
--- NOTE | 2017-03-18 15:16 | US ---
HISTORY: Leg pain and swelling. Evaluate for DVT PHYSICIAN(S): Desmond Eisenberg MD. TECHNIQUE: Duplex sonography and color-flow Doppler with graded compression were used to evaluate the deep venous systems of both lower extremities. The exam is somewhat limited by edema. FINDINGS: The visualized deep venous systems of both lower extremities are sonographically normal and compressible. Normal wave forms and augmentation are seen. There is no sonographic evidence for deep venous thrombosis in the visualized segments of both lower extremities. IMPRESSION: No sonographic evidence for deep venous thrombosis in the visualized segments of both lower extremities.
[2017-03-18 15:20] LABS: BARBITURATES, UR NEGATIVE (NEGATIVE); BENZODIAZEPINES, UR NEGATIVE (NEGATIVE); OPIATES, UR NEGATIVE (NEGATIVE); PHENCYCLIDINE, UR NEGATIVE (NEGATIVE)
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
--- NOTE | 2017-03-18 17:42 | RAD ---
HISTORY: Falls. COMPARISON: No prior. FINDINGS: LUNGS: No active pulmonary disease. PLEURA: No significant pleural effusion identified, no pneumothorax apparent. CARDIOVASCULAR: No radiographic findings to suggest acute or significant cardiovascular disease. OSSEOUS STRUCTURES: No significant abnormalities. VISUALIZED UPPER ABDOMEN: Normal. OTHER FINDINGS: None. IMPRESSION: No active disease.
[2017-03-18 18:39] VITALS: BP 160/104; PULSE 71; O2SAT 98
== END 2017-03-18 19:32 | disposition left against medical advice (07) ==
LOC: ED 13:20 → UNDOADMIN 14:51 → ERH 14:51
DX: E87.0 Hyperosmolality and hypernatremia (principal); R27.0 Ataxia, unspecified; F10.129 Alcohol abuse with intoxication, unspecified; Y90.8 Blood alcohol level of 240 mg/100 ml or more; F17.210 Nicotine dependence, cigarettes, uncomplicated
CPT/HCPCS: 70450; 71045; 73560; 80053; 80320; 80324; 80345; 80346; 80349; 80353; 80358; 80361; 81003; 82436; 82550; 82553; 82948; 83880; 83935; 83992; 84132; 84133; 84300; 85025; 85610; 85730; 93970; 99284; J7030

== ENCOUNTER 2017-08-12 02:07 | Emergency (ER) | payer MEDICAID ==
[2017-08-12 02:08] VITALS: BMI 27.1
[2017-08-12 02:20] VITALS: RESP 18; TEMP 98
--- NOTE | 2017-08-12 02:35 | ED PDOC ---
Arrival/HPI - General Chief Complaint: Alcohol Ingestion Time Seen by Provider: 08/12/17 02:12 Historian: Patient - History of Present Illness Narrative History of Present Illness (Text): 08/12/17 02:34 Adiel Luna is a 62 year old male, whose past medical history includes alcohol abuse, who presents to the Emergency department brought in by EMS public intoxication. Patient was found outside inebriated. Patient admits to drinking alcohol and states he feels fine. Patient denies any fever, chills, chest pain, shortness of breath, nausea, vomiting, diarrhea, urinary symptoms, back pain, neck pain, headache, dizziness, or any other complaints. Time/Duration: Other (tonight) Symptom Onset: Gradual Symptom Course: Unchanged Activities at Onset: Light Past Medical History - Provider Review Nursing Documentation Reviewed: Yes - Infectious Disease Hx of Infectious Diseases: None - Cardiac Hx Cardiac Disorders: No - Pulmonary Hx Respiratory Disorders: No - Neurological Hx Neurological Disorder: Yes Other/Comment: Brain injury - HEENT Hx HEENT Disorder: No - Renal Hx Renal Disorder: No - Endocrine/Metabolic Hx Endocrine Disorders: No - Hematological/Oncological Hx Blood Disorders: No - Integumentary Hx Dermatological Disorder: No - Musculoskeletal/Rheumatological Hx Musculoskeletal Disorders: Yes Hx Arthritis: Yes Hx Falls: Yes Hx Unsteady Gait: Yes - Gastrointestinal Hx Gastrointestinal Disorders: No - Genitourinary/Gynecological Hx Genitourinary Disorders: No - Psychiatric Hx Psychophysiologic Disorder: No Hx Substance Use: No - Surgical History Hx Orthopedic Surgery: Yes - Anesthesia Hx Anesthesia: No Family/Social History - Physician Review Nursing Documentation Reviewed: Yes Family/Social History: Unknown Family HX Smoking Status: Light Smoker < 10 Cigarettes Daily Hx Alcohol Use: Yes Hx Substance Use: No Allergies/Home Meds Allergies/Adverse Reactions: Allergies No Known Allergies Allergy (Verified 08/12/17 02:20) Home Medications: Home Meds Medication Instructions Recorded Confirmed Unobtainable 10/15/16 08/12/17 Review of Systems - Physician Review All systems were reviewed & negative as marked: Yes - Review of Systems Constitutional: Normal. absent: Fevers Eyes: Normal ENT: Normal Respiratory: Normal. absent: SOB, Cough Cardiovascular: Normal. absent: Chest Pain Gastrointestinal: Normal. absent: Abdominal Pain, Diarrhea, Nausea, Vomiting Genitourinary Male: Normal. absent: Dysuria, Frequency, Hematuria, Urinary Output Changes Musculoskeletal: Normal. absent: Back Pain, Neck Pain Skin: Normal. absent: Rash Neurological: Normal. absent: Headache, Dizziness Endocrine: Normal Hemo/Lymphatic: Normal Psychiatric: Normal Physical Exam Vital Signs Reviewed: Yes Vital Signs Temp Pulse Resp BP Pulse Ox 08/12/17 05:08 84 18 136/74 99 08/12/17 02:16 98 F 82 18 131/82 96 Temperature: Afebrile Blood Pressure: Normal Pulse: Regular Respiratory Rate: Normal Appearance: Positive for: Well-Appearing, Comfortable Pain Distress: None Mental Status: Positive for: Alert and Oriented X 3 - Systems Exam Head: Present: Atraumatic, Normocephalic Pupils: Present: PERRL Extroacular Muscles: Present: EOMI Conjunctiva: Present: Normal Mouth: Present: Moist Mucous Membranes Neck: Present: Normal Range of Motion Respiratory/Chest: Present: Clear to Auscultation, Good Air Exchange. No: Respiratory Distress, Accessory Muscle Use Cardiovascular: Present: Regular Rate and Rhythm, Normal S1, S2. No: Murmurs Abdomen: No: Tenderness, Distention, Peritoneal Signs Back: Present: Normal Inspection Upper Extremity: Present: Normal Inspection. No: Cyanosis, Edema Lower Extremity: Present: Normal Inspection. No: Edema Neurological: Present: GCS=15, CN II-XII Intact, Speech Normal Skin: Present: Warm, Dry, Normal Color. No: Rashes Psychiatric: Present: Alert, Oriented x 3 Medical Decision Making ED Course and Treatment: 08/12/17 02:34 Impression: 62 year old male brought in for alcohol intoxication tonight. Differential Diagnosis included but are not limited to: alcohol intoxication Plan: -- Reassess and disposition Progress Notes: 08/12/17 05:51 Pt awake, alert, ambulating with steady gait. In no acute distress, clinically sober. Pt stable for d/c. - Lab Interpretations Lab Results: Lab Results 08/12/17 02:16: POC Glucose (mg/dL) 84 - Scribe Statement The provider has reviewed the documentation as recorded by the Robb Reynolds Provider Scribe Attestation: All medical record entries made by the Scribe were at my direction and personally dictated by me. I have reviewed the chart and agree that the record accurately reflects my personal performance of the history, physical exam, medical decision making, and the department course for this patient. I have also personally directed, reviewed, and agree with the discharge instructions and disposition. Disposition/Present on Arrival - Present on Arrival Any Indicators Present on Arrival: No History of DVT/PE: No History of Uncontrolled Diabetes: No Urinary Catheter: No History of Decub. Ulcer: No History Surgical Site Infection Following: None - Disposition Have Diagnosis and Disposition been Completed?: Yes Diagnosis: Alcohol intoxication Disposition: HOME/ ROUTINE Disposition Time: 05:50 Patient Plan: Discharge Condition: GOOD Referrals: Alcoholics Anonymous [Outside] - Follow up with primary Forms: [employer] (Khmer)
[2017-08-12 06:20] VITALS: BP 136/74; PULSE 84; O2SAT 99
== END 2017-08-12 07:12 | disposition home or self-care (01) ==
LOC: ED 02:07
DX: F10.129 Alcohol abuse with intoxication, unspecified (principal)

== ENCOUNTER 2017-09-03 01:55 | Emergency (ER) | payer MEDICAID ==
[2017-09-03 01:56] VITALS: BMI 27.1
[2017-09-03 02:11] VITALS: TEMP 97.5
--- NOTE | 2017-09-03 02:35 | ED PDOC ---
Arrival/HPI - General Chief Complaint: Alcohol Ingestion Time Seen by Provider: 09/03/17 02:04 Historian: Patient, EMS - History of Present Illness Narrative History of Present Illness (Text): 09/03/17 02:32 A 62 year old male, whose past medical history includes alcohol abuse, presents to the emergency department via EMS for public alcohol intoxication. Patient was found sleeping on a bench. Patient admits to drinking alcohol today. He denies fevers, chills, headache, dizziness, chest pain, shortness of breath, dyspnea on exertion, cough, abdominal pain, nausea, vomiting, diarrhea, back pain, neck pain, urinary/bowel changes, or any other complaint. Time/Duration: Prior to Arrival Symptom Onset: Sudden Symptom Course: Unchanged Activities at Onset: Rest, Light Context: Street Past Medical History - Provider Review Nursing Documentation Reviewed: Yes - Infectious Disease Hx of Infectious Diseases: None - Cardiac Hx Cardiac Disorders: No - Pulmonary Hx Respiratory Disorders: No - Neurological Hx Neurological Disorder: Yes Other/Comment: Brain injury - HEENT Hx HEENT Disorder: No - Renal Hx Renal Disorder: No - Endocrine/Metabolic Hx Endocrine Disorders: No - Hematological/Oncological Hx Blood Disorders: No - Integumentary Hx Dermatological Disorder: No - Musculoskeletal/Rheumatological Hx Musculoskeletal Disorders: Yes Hx Arthritis: Yes Hx Falls: Yes Hx Unsteady Gait: Yes - Gastrointestinal Hx Gastrointestinal Disorders: No - Genitourinary/Gynecological Hx Genitourinary Disorders: No - Psychiatric Hx Psychophysiologic Disorder: No Hx Substance Use: No - Surgical History Hx Orthopedic Surgery: Yes - Anesthesia Hx Anesthesia: No Family/Social History - Physician Review Nursing Documentation Reviewed: Yes Family/Social History: No Known Family HX Smoking Status: Light Smoker < 10 Cigarettes Daily Hx Alcohol Use: Yes Frequency of alcohol use: Socially Hx Substance Use: No Allergies/Home Meds Allergies/Adverse Reactions: Allergies No Known Allergies Allergy (Verified 09/03/17 02:05) Home Medications: Home Meds Medication Instructions Recorded Confirmed Unobtainable 10/15/16 09/03/17 Review of Systems - Physician Review All systems were reviewed & negative as marked: Yes - Review of Systems Systems not reviewed;Unavailable: Intoxicated Constitutional: absent: Fevers, Night Sweats Respiratory: absent: SOB, Cough Cardiovascular: absent: Chest Pain, [place] Gastrointestinal: absent: Abdominal Pain, Stool Changes, Diarrhea, Nausea, Vomiting Genitourinary Male: absent: Urinary Output Changes Musculoskeletal: absent: Back Pain, Neck Pain Neurological: absent: Headache, Dizziness Physical Exam Vital Signs Reviewed: Yes Vital Signs Temp Pulse Resp BP Pulse Ox 09/03/17 02:09 97.5 F L 77 16 96/59 L 95 Temperature: Hypothermic Blood Pressure: Hypotensive Pulse: Regular Respiratory Rate: Normal Appearance: Positive for: Well-Appearing, Comfortable Pain Distress: None Mental Status: Positive for: Alert and Oriented X 3 - Systems Exam Head: Present: Atraumatic, Normocephalic Pupils: Present: PERRL Extroacular Muscles: Present: EOMI Conjunctiva: Present: Normal Mouth: Present: Moist Mucous Membranes Neck: Present: Normal Range of Motion Respiratory/Chest: Present: Clear to Auscultation, Good Air Exchange. No: Respiratory Distress, Accessory Muscle Use Cardiovascular: Present: Regular Rate and Rhythm, Normal S1, S2. No: Murmurs Abdomen: No: Tenderness, Distention, Peritoneal Signs Back: Present: Normal Inspection Upper Extremity: Present: Normal Inspection. No: Cyanosis, Edema Lower Extremity: Present: Normal Inspection. No: Edema Neurological: Present: GCS=15, CN II-XII Intact, Speech Normal Skin: Present: Warm, Dry, Normal Color. No: Rashes Psychiatric: Present: Alert, Oriented x 3, Normal Insight, Normal Concentration , Intoxicated Medical Decision Making ED Course and Treatment: 09/03/17 02:35 Impression: A 62 year old male is brought into the emergency department via EMS for public alcohol intoxication. Plan: -- Reassess and disposition Progress Notes: 09/03/17 05:57: Patient resting comfortably, in no acute distress. 09/03/17 06:15 Pt. now awake alert,sober with steady gait in ED. - Scribe Statement The provider has reviewed the documentation as recorded by the Scribe Leann Cooper Provider Scribe Attestation: All medical record entries made by the Scribe were at my direction and personally dictated by me. I have reviewed the chart and agree that the record accurately reflects my personal performance of the history, physical exam, medical decision making, and the department course for this patient. I have also personally directed, reviewed, and agree with the discharge instructions and disposition. Disposition/Present on Arrival - Present on Arrival Any Indicators Present on Arrival: No History of DVT/PE: No History of Uncontrolled Diabetes: No Urinary Catheter: No History of Decub. Ulcer: No History Surgical Site Infection Following: None - Disposition Have Diagnosis and Disposition been Completed?: Yes Diagnosis: Alcohol intoxication Disposition: HOME/ ROUTINE Disposition Time: 06:15 Patient Plan: Discharge Condition: GOOD Discharge Instructions (ExitCare): Alcohol Abuse and Alcoholism (DC) Referrals: Mike Polo MD [Primary Care Provider] - Follow up with primary Alcoholics Anonymous [Outside] - Follow up with primary Forms: [employer] (Filipino)
[2017-09-03 06:42] VITALS: BP 110/60; O2SAT 98
[2017-09-03 06:43] VITALS: PULSE 89; RESP 20
== END 2017-09-03 06:42 | disposition home or self-care (01) ==
LOC: ED 01:55
DX: F10.129 Alcohol abuse with intoxication, unspecified (principal); F17.210 Nicotine dependence, cigarettes, uncomplicated

== ENCOUNTER 2017-09-22 19:06 | Emergency (ER) | payer MEDICARE, MEDICAID ==
[2017-09-22 19:06] VITALS: BMI 27.1
[2017-09-22 19:51] VITALS: TEMP 97.9
--- NOTE | 2017-09-22 19:51 | ED PDOC ---
Arrival/HPI - General Chief Complaint: Alcohol Ingestion Time Seen by Provider: 09/22/17 19:20 Historian: Patient, EMS - History of Present Illness Narrative History of Present Illness (Text): 09/22/17 19:47 A 62 year old male, whose past medical history includes ETOH abuse, presents to the emergency department was brought in by EMS for public intoxication.EMS reports patient was found sleeping on a park bench. Patient admits to drinking only 2 beers and states he was resting because he was too far to walk to his friends house. Patient reports he is fine. Patient denies any drug use, fever, chills, chest pain, shortness of breath, nausea, headache, dizziness, or any other somatic complaints offered. Time/Duration: Prior to Arrival Symptom Onset: Gradual Symptom Course: Unchanged Activities at Onset: Light Context: Street Past Medical History - Provider Review Nursing Documentation Reviewed: Yes - Infectious Disease Hx of Infectious Diseases: None - Cardiac Hx Cardiac Disorders: No - Pulmonary Hx Respiratory Disorders: No - Neurological Hx Neurological Disorder: Yes Other/Comment: Brain injury - HEENT Hx HEENT Disorder: No - Renal Hx Renal Disorder: No - Endocrine/Metabolic Hx Endocrine Disorders: No - Hematological/Oncological Hx Blood Disorders: No - Integumentary Hx Dermatological Disorder: No - Musculoskeletal/Rheumatological Hx Musculoskeletal Disorders: Yes Hx Arthritis: Yes Hx Falls: Yes Hx Unsteady Gait: Yes - Gastrointestinal Hx Gastrointestinal Disorders: No - Genitourinary/Gynecological Hx Genitourinary Disorders: No - Psychiatric Hx Psychophysiologic Disorder: No Hx Substance Use: No - Surgical History Hx Orthopedic Surgery: Yes - Anesthesia Hx Anesthesia: No Hx Anesthesia Reactions: No Hx Malignant Hyperthermia: No Family/Social History - Physician Review Nursing Documentation Reviewed: Yes Family/Social History: Unknown Family HX Smoking Status: Light Smoker < 10 Cigarettes Daily Hx Alcohol Use: Yes Hx Substance Use: No Allergies/Home Meds Allergies/Adverse Reactions: Allergies No Known Allergies Allergy (Verified 09/03/17 02:05) Home Medications: Home Meds Medication Instructions Recorded Confirmed Unobtainable 10/15/16 09/03/17 Review of Systems - Physician Review All systems were reviewed & negative as marked: Yes - Review of Systems Systems not reviewed;Unavailable: Intoxicated Constitutional: absent: Fevers, Night Sweats Respiratory: absent: SOB Cardiovascular: absent: Chest Pain Gastrointestinal: absent: Nausea Neurological: absent: Headache, Dizziness Physical Exam Vital Signs Reviewed: Yes Vital Signs Temp Pulse Resp BP Pulse Ox 09/22/17 19:50 97.9 F 110 H 20 145/72 98 Temperature: Afebrile Blood Pressure: Normal Pulse: Tachycardic Respiratory Rate: Normal Appearance: Positive for: Well-Appearing, Non-Toxic, Comfortable Pain Distress: None Mental Status: Positive for: Alert and Oriented X 3 - Systems Exam Head: Present: Atraumatic, Normocephalic Pupils: Present: PERRL Extroacular Muscles: Present: EOMI Conjunctiva: Present: Normal Mouth: Present: Moist Mucous Membranes Neck: Present: Normal Range of Motion Respiratory/Chest: Present: Clear to Auscultation, Good Air Exchange. No: Respiratory Distress, Accessory Muscle Use Cardiovascular: Present: Regular Rate and Rhythm, Normal S1, S2. No: Murmurs Abdomen: No: Tenderness, Distention, Peritoneal Signs Back: Present: Normal Inspection Upper Extremity: Present: Normal Inspection. No: Cyanosis, Edema Lower Extremity: Present: Normal Inspection. No: Edema Neurological: Present: GCS=15, CN II-XII Intact, Speech Normal Skin: Present: Warm, Dry, Normal Color. No: Rashes Psychiatric: Present: Alert, Oriented x 3, Normal Insight, Normal Concentration Medical Decision Making ED Course and Treatment: 09/22/17 19:52 Impression: 62 year old male presenting to the Emergency department brought in by EMS for intoxication. Plan: -- Reassess and disposition Prior Visits: Notes and results from previous visits were reviewed. Progress Notes: 09/22/17 21:07 Pt is awake, alert, sober, and ready for d/c. - Scribe Statement The provider has reviewed the documentation as recorded by the Gómez[place]cale Parks All medical record entries made by the Scribe were at my direction and personally dictated by me. I have reviewed the chart and agree that the record accurately reflects my personal performance of the history, physical exam, medical decision making, and the department course for this patient. I have also personally directed, reviewed, and agree with the discharge instructions and disposition. Disposition/Present on Arrival - Present on Arrival Any Indicators Present on Arrival: No History of DVT/PE: No History of Uncontrolled Diabetes: No Urinary Catheter: No History of Decub. Ulcer: No History Surgical Site Infection Following: None - Disposition Have Diagnosis and Disposition been Completed?: Yes Diagnosis: Alcohol abuse Disposition: HOME/ ROUTINE Disposition Time: 21:02 Patient Plan: Discharge Patient Problems: Current Active Problems Problem Status Onset Alcohol abuse Acute Condition: STABLE Discharge Instructions (ExitCare): Alcohol Abuse and Alcoholism (DC) Referrals: Alcoholics Anonymous [Outside] - Follow up with primary Forms: [employer] (Sinhala)
[2017-09-23 02:10] VITALS: BP 140/82; PULSE 101; RESP 18; O2SAT 97
== END 2017-09-23 02:10 | disposition home or self-care (01) ==
LOC: ED 19:06
DX: F10.10 Alcohol abuse, uncomplicated (principal)

== ENCOUNTER 2017-09-24 18:46 | Emergency (ER) | payer MEDICARE, MEDICAID ==
[2017-09-24 18:46] VITALS: BMI 27.1
[2017-09-24 19:19] VITALS: PULSE 99; RESP 18
[2017-09-24 20:01] LABS: BASO # 0.05 K/mm3 (0.0-2.0); BASO % 0.8 % (0.0-3.0); EOS # 0.3 (0.0-0.7); EOS % 4.7 % (1.5-5.0); GRAN # 2.68 (1.4-6.5); GRAN % 44.6 % (50.0-68.0); HEMOGLOBIN 12.4 g/dL (14.0-18.0); LYMPH # 2.4 (1.2-3.4); LYMPH % 39.8 % (22.0-35.0); MEAN CELL VOLUME 87.3 fl (80.0-105.0); MEAN CORPUSCULAR HEMOGLOBIN 29.7 pg (25.0-35.0); MEAN CORPUSCULAR HGB CONC 34.1 g/dl (31.0-37.0); MEAN PLATELET VOLUME 10.2 fl (7.0-11.0); MONO # 0.6 (0.1-0.6); MONO % 10.1 % (1.0-6.0); RBC 4.17 10^6/uL (3.5-6.1); RED CELL DISTRIBUTION WIDTH 17.5 % (11.5-14.5)
[2017-09-24 20:09] LABS: ALB/GLOB RATIO 0.8 (1.1-1.8); ALBUMIN 3.9 g/dL (3.0-4.8); ALT/SGPT 69 U/L (7-56); AST/SGOT 143 U/L (17-59); BLOOD UREA NITROGEN 7 mg/dL (7-21); CALCIUM 8.6 mg/dL (8.4-10.5); GFR AFRICAN-AMERICAN > 60; GFR NON-AFRICAN AMERICAN > 60
[2017-09-24 20:18] LABS: PH,URINE 6.5 (4.7-8.0); URINE APPEARANCE CLEAR (CLEAR); URINE BILIRUBIN NEGATIVE (NEGATIVE); URINE BLOOD NEGATIVE (NEGATIVE); URINE COLOR YELLOW (YELLOW); URINE GLUCOSE (UA) NEGATIVE (NEGATIVE); URINE LEUKOCYTE ESTERASE NEGATIVE Leu/uL (NEGATIVE); URINE PROTEIN NEGATIVE mg/dL (<30 mg/dL)
[2017-09-24 20:20] LABS: TROPONIN I < 0.01 ng/mL
--- NOTE | 2017-09-24 20:41 | ED PDOC ---
Arrival/HPI - General Historian: Patient - General Chief Complaint: Dizziness/Lightheaded Time Seen by Provider: 09/24/17 18:55 - History of Present Illness Narrative History of Present Illness (Text): 09/24/17 20:37 62yr old male presents today with dizziness since this morning. pt states when he walks he feels unsteady. pt denies CP or SOB. pt denies abdominal pain. pt denies recent trauma or injury. pt admits to drinking today. pt denies drug use. pt denies vomiting/diarrhea. pt denies headache or dizziness. denies urinary symptoms. pt denies headache. no neck or back pain. Upon evaluation, pt states he is feeling better. (Dawna Underwood) Past Medical History - Provider Review Nursing Documentation Reviewed: Yes - Travel History Have you recently traveled outside [place] w/in the past 3 mons?: No - Infectious Disease Hx of Infectious Diseases: None - Cardiac Hx Cardiac Disorders: No - Pulmonary Hx Respiratory Disorders: No - Neurological Hx Neurological Disorder: Yes Other/Comment: Brain injury - HEENT Hx HEENT Disorder: No - Renal Hx Renal Disorder: No - Endocrine/Metabolic Hx Endocrine Disorders: No - Hematological/Oncological Hx Blood Disorders: No - Integumentary Hx Dermatological Disorder: No - Musculoskeletal/Rheumatological Hx Musculoskeletal Disorders: Yes Hx Arthritis: Yes Hx Falls: Yes Hx Unsteady Gait: Yes - Gastrointestinal Hx Gastrointestinal Disorders: No - Genitourinary/Gynecological Hx Genitourinary Disorders: No - Psychiatric Hx Psychophysiologic Disorder: No Hx Substance Use: No - Surgical History Hx Orthopedic Surgery: Yes - Anesthesia Hx Anesthesia: No Hx Anesthesia Reactions: No Hx Malignant Hyperthermia: No Family/Social History - Physician Review Nursing Documentation Reviewed: Yes Family/Social History: Unknown Family HX Smoking Status: Current Some Days Smoker Hx Alcohol Use: Yes Frequency of alcohol use: Few days per week Hx Substance Use: No Allergies/Home Meds Allergies/Adverse Reactions: Allergies No Known Allergies Allergy (Verified 09/03/17 02:05) Home Medications: Home Meds Medication Instructions Recorded Confirmed Unobtainable 10/15/16 09/03/17 Review of Systems - Review of Systems Constitutional: absent: Fatigue, Fevers Respiratory: absent: SOB, Cough Cardiovascular: absent: Chest Pain, Palpitations Gastrointestinal: absent: Abdominal Pain, Nausea, Vomiting Musculoskeletal: absent: Arthralgias, Back Pain, Neck Pain Skin: absent: Rash, Pruritis Neurological: Dizziness. absent: Headache Psychiatric: absent: Anxiety, Depression, Suicidal Ideation Physical Exam Vital Signs Reviewed: Yes Temperature: Afebrile Blood Pressure: Normal Pulse: Regular Respiratory Rate: Normal Appearance: Positive for: Well-Appearing, Non-Toxic, Comfortable Pain Distress: None Mental Status: Positive for: Alert and Oriented X 3 - Systems Exam Head: Present: Atraumatic Mouth: Present: Moist Mucous Membranes Neck: Present: Normal Range of Motion Respiratory/Chest: Present: Clear to Auscultation, Good Air Exchange. No: Respiratory Distress, Accessory Muscle Use Cardiovascular: Present: Regular Rate and Rhythm, Normal S1, S2. No: Murmurs Abdomen: No: Tenderness, Distention, Peritoneal Signs, Rebound, Guarding Back: Present: Normal Inspection Upper Extremity: Present: Normal ROM Lower Extremity: Present: Normal ROM Neurological: Present: GCS=15, Speech Normal, Motor Func Grossly Intact, Normal Sensory Function. No: Gait Normal (unsteady) Skin: Present: Warm, Dry, Normal Color. No: Rashes Psychiatric: Present: Alert, Oriented x 3 Vital Signs Temp Pulse Resp BP Pulse Ox 09/25/17 06:25 99 09/25/17 05:59 99 H 18 135/70 99 09/24/17 21:02 98.4 F 09/24/17 19:19 99 H 18 102/74 98 Medical Decision Making ED Course and Treatment: 09/24/17 20:40 62yr old male with dizziness since today. states he feels better in er. cbc; wnl cmp; elevated lfts etoh; 258 trop; wnl ekg; NSR at 89 b/m , no st elevations, normal axis, normal intervals. UA: wnl head ct; FINDINGS: Brain: There is cerebral and cerebellar cortical volume loss compatible with the patient's age. Scattered low density areas in the periventricular white matter and basal ganglia probably reflect chronic small vessel ischemic changes. Vascular calcifications are present. There is no intracranial hemorrhage or mass. No abnormal extra-axial or parenchymal fluid collections. Posterior fossa is unremarkable. Ventricles: The ventricles and basilar cisterns are prominant likely related to chronic volume loss. Bones/joints: . No acute fracture. Sinuses: Mild mucosal thickening in the ethmoid sinuses present. Mastoid air cells: Normal as visualized. No mastoid effusion. Soft tissues: Normal. IMPRESSION: 1. Chronic changes probably related to small vessel ischemia present. 2. No acute intracranial process present.. pt reassessment; pt states he feels fine and wants to go home. pt states he has no dizziness. pt is refusing admission to the hospital. advised patient that he is to be observed in er. unable to AMA patient as he is currently intoxicated. will observe until sober and re-evaluate. pt reassessment; pt sleeping in er. no distress. 09/25/17 03:02 case signed out to dr. roque pending sobriety re-evaluation and disposition. (Dawna Underwood) 09/25/17 06:25 Leaving Against Medical Advice (AMA): The patient is choosing to leave against medical advice. I have personally explained to the patient that choosing to do so may result in permanent bodily harm or . I have discussed at great length that without further evaluation and monitoring there may be unforeseen circumstances and/or deterioration causing permanent bodily harm or as a result of their choice. The patient is alert, oriented, and shows the mental capacity to make clear decisions regarding the patients health care at this time. The patient continues to wish to leave against medical advice. In light of the patients decision to leave against medical advice, patient is aware of the importance to following up as instructed. The patient has been advised that they should return to the emergency room immediately if they change their mind at any time, or if their condition begins to change or worsen in any way.. (Frandy Roque) - Lab Interpretations Lab Results: 09/24/17 19:35 09/24/17 19:35 Lab Results 09/24/17 20:04: Urine Color Yellow, Urine Appearance Clear, Urine pH 6.5, Ur Specific Williamson <= 1.005, Urine Protein Negative, Urine Glucose (UA) Negative, Urine Ketones Negative, Urine Blood Negative, Urine Nitrate Negative, Urine Bilirubin Negative, Urine Urobilinogen 1.0 H, Ur Leukocyte Esterase Negative 09/24/17 19:35: WBC 6.0, RBC 4.17, Hgb 12.4 L, Hct 36.4 L, MCV 87.3 D, MCH 29.7 , MCHC 34.1, RDW 17.5 H, Plt Count 149, MPV 10.2, Gran % 44.6 L, Lymph % (Auto) 39.8 H, [place] % (Auto) 10.1 H, Eos % (Auto) 4.7, Baso % (Auto) 0.8, Gran # 2.68, Lymph # (Auto) 2.4, [place] # (Auto) 0.6, Eos # (Auto) 0.3, Baso # (Auto) 0.05 09/24/17 19:35: Alcohol, Quantitative 258 H 09/24/17 19:35: Sodium 148, Potassium 3.8, Chloride 109 H, Carbon Dioxide 25, Anion Gap 18, BUN 7, Creatinine 0.6 L, Est GFR ( Amer) > 60, Est GFR (Non -Af Amer) > 60, Random Glucose 78, Calcium 8.6, Total Bilirubin 0.8, AST 143 H D , ALT 69 H, Alkaline Phosphatase 106, Lactate Dehydrogenase 726 H, Total Creatine Kinase 208, Troponin I < 0.01, Total Protein 8.7 H, Albumin 3.9, Globulin 4.8, Albumin/Globulin Ratio 0.8 L - RAD Interpretation Radiology Orders: 09/24/17 19:19 HEAD W/O CONTRAST [CT] Stat CHEST PORTABLE [RAD] Stat Disposition/Present on Arrival - Present on Arrival Any Indicators Present on Arrival: No History of DVT/PE: No History of Uncontrolled Diabetes: No Urinary Catheter: No History of Decub. Ulcer: No History Surgical Site Infection Following: None - Disposition Have Diagnosis and Disposition been Completed?: Yes Disposition Time: 06:25 Patient Plan: Other (AMA) - Disposition Diagnosis: Alcohol intoxication Disposition: AGAINST MEDICAL ADVICE Condition: FAIR Referrals: Praful Pedraza MD [Primary Care Provider] - Follow up with primary Forms: [employer] (Romanian)
[2017-09-24 21:02] VITALS: TEMP 98.4
[2017-09-25 06:25] VITALS: BP 135/70; O2SAT 99
--- NOTE | 2017-09-25 08:15 | CT ---
Date of service: 09/24/2017 PROCEDURE: CT HEAD WITHOUT CONTRAST. HISTORY: dizziness COMPARISON: 03/18/2017 TECHNIQUE: Axial computed tomography images were obtained through the head/brain without intravenous contrast. Radiation dose: Total exam DLP = 997.32 mGy-cm. This CT exam was performed using one or more of the following dose reduction techniques: Automated exposure control, adjustment of the mA and/or kV according to patient size, and/or use of iterative reconstruction technique. FINDINGS: HEMORRHAGE: No intracranial hemorrhage. BRAIN: No mass effect or edema. Minimal chronic periventricular white matter ischemic change. No evidence of acute infarct. VENTRICLES: Unremarkable. No hydrocephalus. CALVARIUM: Unremarkable. PARANASAL SINUSES: Unremarkable as visualized. No significant inflammatory changes. MASTOID AIR CELLS: Unremarkable as visualized. No inflammatory changes. OTHER FINDINGS: None. IMPRESSION: No intracranial mass, hemorrhage or evidence of acute infarct. The preliminary findings for this examination were reported by [facility] at 10 p.m. on 09/24/2017. There is concurrence of this report with the preliminary findings.
--- NOTE | 2017-09-25 09:15 | RAD ---
Date of service: 09/24/2017 HISTORY: dizziness COMPARISON: 03/18/2017 FINDINGS: LUNGS: No active pulmonary disease. PLEURA: No significant pleural effusion identified, no pneumothorax apparent. CARDIOVASCULAR: Normal. OSSEOUS STRUCTURES: No significant abnormalities. VISUALIZED UPPER ABDOMEN: Normal. OTHER FINDINGS: None. IMPRESSION: No active disease.
--- NOTE | 2017-09-25 10:12 | CARD ---
APPROVED REPORT Date of service: 09/24/2017 EKG Measurement Heart [id number] <Conclusion> Normal sinus rhythm Normal ECG
== END 2017-09-25 06:25 | disposition left against medical advice (07) ==
LOC: ED 18:46
DX: F10.129 Alcohol abuse with intoxication, unspecified (principal); Y90.8 Blood alcohol level of 240 mg/100 ml or more
CPT/HCPCS: 70450; 71045; 80053; 81003; 82550; 83615; 84484; 85025; 93005; 99285; G0480

== ENCOUNTER 2017-10-09 15:26 | Emergency (ER) | payer MEDICARE, MEDICAID ==
--- NOTE | 2017-10-09 15:32 | ED PDOC ---
Arrival/HPI - General Time Seen by Provider: 10/09/17 15:28 Historian: Patient - History of Present Illness Narrative History of Present Illness (Text): 10/09/17 15:32 Patient is a 62 year old male with past medical history of ETOH abuse, presents to the emergency department for alcohol intoxication. Patient was found sleeping on a park bench and was brought in by EMS to the hospital. Patient states that his last drank was 1 beer at 10 AM this morning. Patient denies falling or hitting his head, having withdrawal symptoms, having any headaches, fevers, chills, shortness of breath, chest pain, abdominal pain, or urinary symptoms. Past Medical History - Provider Review Nursing Documentation Reviewed: Yes - Infectious Disease Hx of Infectious Diseases: None - Cardiac Hx Cardiac Disorders: No - Pulmonary Hx Respiratory Disorders: No - Neurological Hx Neurological Disorder: Yes Other/Comment: Brain injury - HEENT Hx HEENT Disorder: No - Renal Hx Renal Disorder: No - Endocrine/Metabolic Hx Endocrine Disorders: No - Hematological/Oncological Hx Blood Disorders: No - Integumentary Hx Dermatological Disorder: No - Musculoskeletal/Rheumatological Hx Musculoskeletal Disorders: Yes Hx Arthritis: Yes Hx Falls: Yes Hx Unsteady Gait: Yes - Gastrointestinal Hx Gastrointestinal Disorders: No - Genitourinary/Gynecological Hx Genitourinary Disorders: No - Psychiatric Hx Psychophysiologic Disorder: No Hx Substance Use: No - Surgical History Hx Orthopedic Surgery: Yes - Anesthesia Hx Anesthesia: No Hx Anesthesia Reactions: No Hx Malignant Hyperthermia: No Family/Social History - Physician Review Nursing Documentation Reviewed: Yes Family/Social History: No Known Family HX Smoking Status: Current Some Days Smoker Hx Alcohol Use: Yes Frequency of alcohol use: Few days per week Hx Substance Use: No Allergies/Home Meds Allergies/Adverse Reactions: Allergies No Known Allergies Allergy (Verified 09/03/17 02:05) Home Medications: Home Meds Medication Instructions Recorded Confirmed Aspirin [Ecotrin] 81 mg PO DAILY 10/09/17 10/09/17 Multivit-Min/Iron/Folic Acid/K 1 tab PO DAILY 10/09/17 10/09/17 [Adults Multivitamin Tablet] Pantoprazole Sodium [Protonix] 40 mg PO DAILY 10/09/17 10/09/17 Sertraline [Zoloft] 50 mg PO HS 10/09/17 10/09/17 Thiamine HCl [B-1] 1 tab PO DAILY 10/09/17 10/09/17 Review of Systems - Physician Review All systems were reviewed & negative as marked: Yes - Review of Systems Constitutional: Normal. absent: Fevers, Night Sweats Eyes: Normal ENT: Normal Respiratory: Normal. absent: SOB, Cough, Wheezing Cardiovascular: Normal. absent: Chest Pain Gastrointestinal: Normal. absent: Abdominal Pain, Constipation, Diarrhea, Nausea, Vomiting Genitourinary Male: Normal Musculoskeletal: Normal. absent: Neck Pain Skin: Normal. absent: Rash, Pruritis, Laceration Neurological: Normal. absent: Headache Psychiatric: Normal. absent: Anxiety, Depression Physical Exam - Physical Exam Physical Exam Limitations: Intoxication Vital Signs Reviewed: Yes Vital Signs Temp Pulse Resp BP Pulse Ox 10/09/17 17:08 85 20 115/71 96 10/09/17 15:27 99 F 90 20 115/59 L 96 Temperature: Afebrile Blood Pressure: Normal Pulse: Regular Respiratory Rate: Normal Appearance: Positive for: Unkept. No: Non-Toxic (Patient is intoxicated) Pain Distress: None Mental Status: Positive for: Lethargic - Systems Exam Head: Present: Atraumatic, Normocephalic. No: Tenderness, Contusion, Abrasion, Laceration Pupils: Present: PERRL Extroacular Muscles: Present: EOMI Conjunctiva: Present: Normal Mouth: Present: Moist Mucous Membranes Pharnyx: Present: Normal Respiratory/Chest: Present: Clear to Auscultation. No: Respiratory Distress, Accessory Muscle Use, Wheezes Cardiovascular: Present: Regular Rate and Rhythm, Normal S1, S2. No: Murmurs, Rub, Gallop Abdomen: Present: Normal Bowel Sounds. No: Tenderness, Distention Upper Extremity: Present: Normal Inspection. No: Cyanosis, Edema Lower Extremity: Present: Normal Inspection. No: Edema Neurological: Present: GCS=15, CN II-XII Intact, Speech Normal, Other (No tremors noted) Skin: Present: Warm, Dry, Normal Color. No: Rashes Psychiatric: Present: Oriented x 3, Intoxicated Medical Decision Making ED Course and Treatment: 10/09/17 16:28 Impression: Patient is a 62 year old male with past medical history of alcohol abuse presenting to the ED with alcohol intoxication. Differential Diagnoses Include But is Not Limited To: - Alcohol intoxication - Alcohol withdrawal symptoms - Need to rule out intracranial hemorrhage 2/2 to fall Plan: - Head CT w/o contrast - Serum alcohol levels Progress note: 10/09/17 16:31 - Examined patient with attending, patient states he only had 1 drink this morning. Patient appears intoxicated. 10/09/17 16:54 - Head CT showed no intracranial hemorrhage, no acute findings. - Serum alcohol level: 318 10/09/17 17:54 - Patient reassessed with attending, he has a stable gait. Patient uses a cane to walk. Patient is stable for discharge. Reassessment Condition: Re-examined, Improved - Lab Interpretations Lab Results: Lab Results 10/09/17 16:13: Alcohol, Quantitative 318 H* - RAD Interpretation Radiology Orders: 10/09/17 16:04 HEAD W/O CONTRAST [CT] Stat Disposition/Present on Arrival - Present on Arrival Any Indicators Present on Arrival: No History of DVT/PE: No History of Uncontrolled Diabetes: No Urinary Catheter: No History of Decub. Ulcer: No History Surgical Site Infection Following: None - Disposition Have Diagnosis and Disposition been Completed?: Yes Diagnosis: Alcohol intoxication Disposition: HOME/ ROUTINE Disposition Time: 17:53 Patient Plan: Discharge Patient Problems: Current Active Problems Problem Status Onset Alcohol intoxication Acute Condition: IMPROVED Discharge Instructions (ExitCare): Alcohol Abuse and Alcoholism (DC) Print Language: HUNGARIAN Additional Instructions: HUGO BELTRAN, thank you for letting us take care of you today. Your provider was Dr. Rahul Butt and you were treated for alcohol intoxication. The emergency medical care you received today was directed at your acute symptoms. If you were prescribed any medication, please fill it and take as directed. It may take several days for your symptoms to resolve. Return to the Emergency Department if your symptoms worsen, do not improve, or if you have any other problems. Please contact your doctor or call one of the physicians/clinics you have been referred to that are listed on the Patient Visit Information form that is included in your discharge packet. Bring any paperwork you were given at discharge with you along with any medications you are taking to your follow up visit. Our treatment cannot replace ongoing medical care by a primary care provider outside of the emergency department. Thank you for allowing the [facility] team to be part of your care today. If you had an X-Ray or CT scan: A Radiologist will review the ED reading if any change in treatment is needed we will contact you. If you had a blood, urine, or wound culture: It will take several days for the results, if any change in treatment is needed we will contact you. If you had an STI test: It will take 48 hours for the results. Please call after 1 week if you have not heard back. Referrals: [facility] [Outside] - Follow up with primary Sania Persaud MD [Medical Doctor] - Follow up with primary Forms: [email or web address] (Kazakh)
[2017-10-09 15:34] VITALS: BMI 26.0
[2017-10-09 15:44] VITALS: RESP 20; O2SAT 96
--- NOTE | 2017-10-09 16:48 | CT ---
Date of service: 10/09/2017 PROCEDURE: CT HEAD WITHOUT CONTRAST. HISTORY: rule out ICH COMPARISON: None available. TECHNIQUE: Axial computed tomography images were obtained through the head/brain without intravenous contrast. Radiation dose: Total exam DLP = 837 mGy-cm. This CT exam was performed using one or more of the following dose reduction techniques: Automated exposure control, adjustment of the mA and/or kV according to patient size, and/or use of iterative reconstruction technique. FINDINGS: HEMORRHAGE: No intracranial hemorrhage. BRAIN: No mass effect or edema. No atrophy or chronic microvascular ischemic changes. VENTRICLES: Unremarkable. No hydrocephalus. CALVARIUM: Unremarkable. PARANASAL SINUSES: Unremarkable as visualized. No significant inflammatory changes. MASTOID AIR CELLS: Unremarkable as visualized. No inflammatory changes. OTHER FINDINGS: None. IMPRESSION: No acute findings
--- NOTE | 2017-10-09 17:54 | ED PDOC ---
Arrival/HPI - General Chief Complaint: Alcohol Ingestion Time Seen by Provider: 10/09/17 15:28 Past Medical History - Infectious Disease Hx of Infectious Diseases: None - Cardiac Hx Cardiac Disorders: No - Pulmonary Hx Respiratory Disorders: No - Neurological Hx Neurological Disorder: Yes Other/Comment: Brain injury - HEENT Hx HEENT Disorder: No - Renal Hx Renal Disorder: No - Endocrine/Metabolic Hx Endocrine Disorders: No - Hematological/Oncological Hx Blood Disorders: No - Integumentary Hx Dermatological Disorder: No - Musculoskeletal/Rheumatological Hx Musculoskeletal Disorders: Yes Hx Arthritis: Yes Hx Falls: Yes Hx Unsteady Gait: Yes - Gastrointestinal Hx Gastrointestinal Disorders: No - Genitourinary/Gynecological Hx Genitourinary Disorders: No - Psychiatric Hx Psychophysiologic Disorder: No Hx Substance Use: No - Surgical History Hx Orthopedic Surgery: Yes - Anesthesia Hx Anesthesia: No Hx Anesthesia Reactions: No Hx Malignant Hyperthermia: No Family/Social History Family/Social History: No Known Family HX Smoking Status: Current Some Days Smoker Hx Alcohol Use: Yes Frequency of alcohol use: Few days per week Hx Substance Use: No Allergies/Home Meds Allergies/Adverse Reactions: Allergies No Known Allergies Allergy (Verified 09/03/17 02:05) Home Medications: Home Meds Medication Instructions Recorded Confirmed Aspirin [Ecotrin] 81 mg PO DAILY 10/09/17 10/09/17 Multivit-Min/Iron/Folic Acid/K 1 tab PO DAILY 10/09/17 10/09/17 [Adults Multivitamin Tablet] Pantoprazole Sodium [Protonix] 40 mg PO DAILY 10/09/17 10/09/17 Sertraline [Zoloft] 50 mg PO HS 10/09/17 10/09/17 Thiamine HCl [B-1] 1 tab PO DAILY 10/09/17 10/09/17 Physical Exam Vital Signs Temp Pulse Resp BP Pulse Ox 10/09/17 17:08 85 20 115/71 96 10/09/17 15:27 99 F 90 20 115/59 L 96 Medical Decision Making ED Course and Treatment: 10/09/17 17:51 patient seen for alcohol intoxication, patient does not exhibit s/s of withdrawal, patient ambulates with steady gait and has clear speech, ciwa score 0, patient is capable of living with daughter, stable for discharge. - Lab Interpretations Lab Results: Lab Results 10/09/17 16:13: Alcohol, Quantitative 318 H* - RAD Interpretation Radiology Orders: 10/09/17 16:04 HEAD W/O CONTRAST [CT] Stat Disposition/Present on Arrival - Present on Arrival Any Indicators Present on Arrival: No History of DVT/PE: No History of Uncontrolled Diabetes: No Urinary Catheter: No History of Decub. Ulcer: No History Surgical Site Infection Following: None - Disposition Have Diagnosis and Disposition been Completed?: Yes Diagnosis: Alcohol intoxication Disposition: HOME/ ROUTINE Disposition Time: 17:54 Patient Plan: Discharge Condition: STABLE Print Language: URDU Additional Instructions: HUGO BELTRAN, thank you for letting us take care of you today. Your provider was Dr. Rahul Butt and you were treated for alcohol intoxication. The emergency medical care you received today was directed at your acute symptoms. If you were prescribed any medication, please fill it and take as directed. It may take several days for your symptoms to resolve. Return to the Emergency Department if your symptoms worsen, do not improve, or if you have any other problems. Please contact your doctor or call one of the physicians/clinics you have been referred to that are listed on the Patient Visit Information form that is included in your discharge packet. Bring any paperwork you were given at discharge with you along with any medications you are taking to your follow up visit. Our treatment cannot replace ongoing medical care by a primary care provider outside of the emergency department. Thank you for allowing the [facility] team to be part of your care today. If you had an X-Ray or CT scan: A Radiologist will review the ED reading if any change in treatment is needed we will contact you. If you had a blood, urine, or wound culture: It will take several days for the results, if any change in treatment is needed we will contact you. If you had an STI test: It will take 48 hours for the results. Please call after 1 week if you have not heard back. Referrals: [facility] [Outside] - Follow up with primary Sania Persaud MD [Medical Doctor] - Follow up with primary Forms: [email or web address] (Slovak)
[2017-10-09 18:21] VITALS: BP 137/86; PULSE 84; TEMP 98.6
== END 2017-10-09 18:00 | disposition home or self-care (01) ==
LOC: ED 15:26
DX: F10.129 Alcohol abuse with intoxication, unspecified (principal); Y90.8 Blood alcohol level of 240 mg/100 ml or more
CPT/HCPCS: 70450; 99283; G0480

== ENCOUNTER 2017-10-14 23:02 | Emergency (ER) | payer MEDICARE, MEDICAID ==
[2017-10-14 23:18] VITALS: BMI 26.2
[2017-10-14 23:30] VITALS: RESP 18; O2SAT 96
[2017-10-14] MEDS ORDERED: Sodium Chloride 0.9% 1,000 ML IV STA (23:50)
--- NOTE | 2017-10-15 00:49 | ED PDOC ---
Arrival/HPI <Dustin Rogel - Last Filed: 10/15/17 02:58> - General Historian: Patient <Laith De Leon - Last Filed: 10/15/17 03:14> - General Chief Complaint: Dizziness/Lightheaded Time Seen by Provider: 10/14/17 23:49 - History of Present Illness Narrative History of Present Illness (Text): 10/15/17 00:50 62 year old male, past medical history significant for ETOH abuse, presents to the emergency department with dizziness. Patient states that every morning when he wakes up he is unable to stand up immediately because he feels dizzy and loses his balance. This has been an ongoing occurrence for him. He denies any nausea, vomiting, shortness of breath, chest pain, or headache. Denies any sick contacts. Denies recent travel. Patient states he lives with his daughter. At this time he states he feels much better. (Laith De Leon) Past Medical History - Provider Review Nursing Documentation Reviewed: Yes - Infectious Disease Hx of Infectious Diseases: None - Cardiac Hx Cardiac Disorders: No - Pulmonary Hx Respiratory Disorders: No - Neurological Hx Neurological Disorder: Yes Other/Comment: Brain injury - HEENT Hx HEENT Disorder: No - Renal Hx Renal Disorder: No - Endocrine/Metabolic Hx Endocrine Disorders: No - Hematological/Oncological Hx Blood Disorders: No - Integumentary Hx Dermatological Disorder: No - Musculoskeletal/Rheumatological Hx Musculoskeletal Disorders: Yes Hx Arthritis: Yes Hx Falls: Yes Hx Unsteady Gait: Yes - Gastrointestinal Hx Gastrointestinal Disorders: No - Genitourinary/Gynecological Hx Genitourinary Disorders: No - Psychiatric Hx Psychophysiologic Disorder: No Hx Substance Use: No - Surgical History Hx Orthopedic Surgery: Yes - Anesthesia Hx Anesthesia: No Hx Anesthesia Reactions: No Hx Malignant Hyperthermia: No <Laith De Leon - Last Filed: 10/15/17 03:14> Family/Social History - Physician Review Nursing Documentation Reviewed: Yes Family/Social History: Unknown Family HX Smoking Status: Current Some Days Smoker Hx Alcohol Use: Yes Frequency of alcohol use: Daily Hx Substance Use: No <Laith De Leon - Last Filed: 10/15/17 03:14> Allergies/Home Meds <Dustin Rogel - Last Filed: 10/15/17 02:58> <Laith De Leon - Last Filed: 10/15/17 03:14> Allergies/Adverse Reactions: Allergies No Known Allergies Allergy (Verified 10/14/17 23:18) Home Medications: Home Meds Medication Instructions Recorded Confirmed Aspirin [Ecotrin] 81 mg PO DAILY 10/09/17 10/14/17 Multivit-Min/Iron/Folic Acid/K 1 tab PO DAILY 10/09/17 10/14/17 [Adults Multivitamin Tablet] Pantoprazole Sodium [Protonix] 40 mg PO DAILY 10/09/17 10/14/17 Sertraline [Zoloft] 50 mg PO HS 10/09/17 10/14/17 Thiamine HCl [B-1] 1 tab PO DAILY 10/09/17 10/14/17 Review of Systems - Physician Review All systems were reviewed & negative as marked: Yes - Review of Systems Constitutional: absent: Weight Change, Fevers Eyes: absent: Vision Changes ENT: absent: Hearing Changes, Tinnitus Respiratory: absent: SOB, Cough Cardiovascular: absent: Chest Pain, Palpitations Gastrointestinal: absent: Abdominal Pain, Nausea, Vomiting Genitourinary Male: absent: Dysuria Musculoskeletal: Arthralgias Skin: absent: Rash Neurological: Gait Changes. absent: Headache, Dizziness, Focal Weakness, Speech Changes, Facial Droop, Disequilibrium, Seizure Endocrine: absent: Diaphoresis <Laith De Leon - Last Filed: 10/15/17 03:14> Physical Exam Vital Signs Reviewed: Yes Temperature: Afebrile Blood Pressure: Normal Pulse: Regular Respiratory Rate: Normal Appearance: Positive for: Well-Appearing, Non-Toxic, Unkept Pain Distress: None Mental Status: Positive for: Alert and Oriented X 3 - Systems Exam Head: Present: Atraumatic, Normocephalic Pupils: Present: PERRL Extroacular Muscles: Present: EOMI Conjunctiva: Present: Normal Mouth: Present: Dry Respiratory/Chest: Present: Clear to Auscultation, Good Air Exchange. No: Respiratory Distress, Accessory Muscle Use Cardiovascular: Present: Regular Rate and Rhythm, Normal S1, S2. No: Murmurs Abdomen: No: Tenderness, Distention, Peritoneal Signs Neurological: Present: GCS=15, CN II-XII Intact, Speech Normal Skin: Present: Warm, Dry, Normal Color. No: Rashes Psychiatric: Present: Alert, Oriented x 3 <Yehya,Laith - Last Filed: 10/15/17 03:14> Vital Signs Temp Pulse Resp BP Pulse Ox 10/15/17 02:48 73 18 153/81 H 96 10/14/17 23:29 99.3 F 90 18 118/78 96 Medical Decision Making <Dustin Rogel - Last Filed: 10/15/17 02:58> <Odalis De Leonbah - Last Filed: 10/15/17 03:14> ED Course and Treatment: 10/15/17 00:54 62M, PMH of ETOH abuse, presents to the emergency department with dizziness. CMC, CMP, Trop 1, EKG, and orthostatics ordered. 1L NS bolus given. 10/15/17 00:56 Date of service: 10/09/2017 PROCEDURE: CT HEAD WITHOUT CONTRAST. HISTORY: rule out ICH COMPARISON: None available. TECHNIQUE: Axial computed tomography images were obtained through the head/brain without intravenous contrast. Radiation dose: Total exam DLP = 837 mGy-cm. This CT exam was performed using one or more of the following dose reduction techniques: Automated exposure control, adjustment of the mA and/or kV according to patient size, and/or use of iterative reconstruction technique. FINDINGS: HEMORRHAGE: No intracranial hemorrhage. BRAIN: No mass effect or edema. No atrophy or chronic microvascular ischemic changes. VENTRICLES: Unremarkable. No hydrocephalus. CALVARIUM: Unremarkable. PARANASAL SINUSES: Unremarkable as visualized. No significant inflammatory changes. MASTOID AIR CELLS: Unremarkable as visualized. No inflammatory changes. OTHER FINDINGS: None. IMPRESSION: No acute findings 10/15/17 03:13 Patient states improvement of his symptoms, likely secondary to dehydration. Patient would like to go home. Patient verbalized understanding and agreement of treatment plan. Case reviewed and discussed with attending provider. (Laith De Leon) - Lab Interpretations Lab Results: 10/15/17 01:45 10/15/17 01:45 Lab Results 10/15/17 01:45: Sodium 146, Potassium 3.3 L, Chloride 109 H, Carbon Dioxide 22, Anion Gap 18, BUN 12, Creatinine 0.7 L, Est GFR ( Amer) > 60, Est GFR ( Non-Af Amer) > 60, Random Glucose 96, Calcium 8.6, Total Bilirubin 1.4 H, AST 106 H D, ALT 47, Alkaline Phosphatase 107, Troponin I < 0.01, Total Protein 8.5 H, Albumin 3.9, Globulin 4.7, Albumin/Globulin Ratio 0.8 L 10/15/17 01:45: WBC 5.6, RBC 4.03, Hgb 12.1 L, Hct 35.9 L, MCV 89.1, MCH 30.0, MCHC 33.7, RDW 17.7 H, Plt Count 134, MPV 9.8, Gran % 52.0, Lymph % (Auto) 34.5 , Rock % (Auto) 9.1 H, Eos % (Auto) 3.7, Baso % (Auto) 0.7, Gran # 2.93, Lymph # (Auto) 1.9, Rock # (Auto) 0.5, Eos # (Auto) 0.2, Baso # (Auto) 0.04 - Medication Orders Current Medication Orders: Discontinued Medications Sodium Chloride (Sodium Chloride 0.9%) 1,000 mls @ 999 mls/hr IV .[id number] STA Stop: 10/15/17 00:50 Potassium Chloride (Potassium Chloride Oral Soln) 20 meq PO STAT STA Stop: 10/15/17 02:37 Disposition/Present on Arrival - Present on Arrival Any Indicators Present on Arrival: No - Disposition Have Diagnosis and Disposition been Completed?: Yes Disposition Time: 02:59 Patient Plan: Discharge <Dustin Rogel - Last Filed: 10/15/17 02:58> - Present on Arrival History of DVT/PE: No History of Uncontrolled Diabetes: No Urinary Catheter: No History of Decub. Ulcer: No History Surgical Site Infection Following: None <Laith De Leon - Last Filed: 10/15/17 03:14> - Disposition Diagnosis: Vertigo Disposition: HOME/ ROUTINE Patient Problems: Current Active Problems Problem Status Onset Vertigo Acute Condition: IMPROVED Discharge Instructions (ExitCare): Vertigo (a Type of Dizziness) (DC), Dizziness, Nonvertigo, (DC) Referrals: Praful Pedraza MD [Primary Care Provider] - Follow up with primary Leon Newton MD [Staff Provider] - Follow up with primary Forms: [email or web address] (Ukrainian), WORK NOTE
[2017-10-15 02:07] LABS: BASO # 0.04 K/mm3 (0.0-2.0); BASO % 0.7 % (0.0-3.0); EOS # 0.2 (0.0-0.7); EOS % 3.7 % (1.5-5.0); GRAN # 2.93 (1.4-6.5); HEMOGLOBIN 12.1 g/dL (14.0-18.0); LYMPH # 1.9 (1.2-3.4); LYMPH % 34.5 % (22.0-35.0); MEAN CELL VOLUME 89.1 fl (80.0-105.0); MEAN CORPUSCULAR HGB CONC 33.7 g/dl (31.0-37.0); MEAN PLATELET VOLUME 9.8 fl (7.0-11.0); MONO # 0.5 (0.1-0.6); MONO % 9.1 % (1.0-6.0); RBC 4.03 10^6/uL (3.5-6.1); RED CELL DISTRIBUTION WIDTH 17.7 % (11.5-14.5); WHITE BLOOD COUNT 5.6 10^3/ul (4.5-11.0)
[2017-10-15 02:24] LABS: ALB/GLOB RATIO 0.8 (1.1-1.8); ALBUMIN 3.9 g/dL (3.0-4.8); ALT/SGPT 47 U/L (7-56); AST/SGOT 106 U/L (17-59); BLOOD UREA NITROGEN 12 mg/dL (7-21); CALCIUM 8.6 mg/dL (8.4-10.5); GFR NON-AFRICAN AMERICAN > 60
[2017-10-15 02:26] LABS: TROPONIN I < 0.01 ng/mL
[2017-10-15] MEDS ORDERED: Potassium Chloride 20 mEq/15 ml LIQ UD PO STA (02:36)
[2017-10-15 02:56] VITALS: BP 153/81; PULSE 73
[2017-10-15 04:02] VITALS: TEMP 98.7
--- NOTE | 2017-10-15 15:38 | CARD ---
APPROVED REPORT Date of service: 10/15/2017 EKG Measurement Heart [id number] <Conclusion> Normal sinus rhythm Nonspecific ST and T wave abnormality Prolonged QT Abnormal ECG
== END 2017-10-15 03:15 | disposition home or self-care (01) ==
LOC: ED 23:02
DX: R42 Dizziness and giddiness (principal)
CPT/HCPCS: 80053; 84484; 85025; 93005; 99285; J7030

== ENCOUNTER 2017-10-15 21:16 | Emergency (ER) | payer MEDICARE, MEDICAID ==
[2017-10-15 21:16] VITALS: BMI 26.2
--- NOTE | 2017-10-15 22:37 | ED PDOC ---
Arrival/HPI - General Time Seen by Provider: 10/15/17 22:02 Historian: Patient, EMS - History of Present Illness Narrative History of Present Illness (Text): 10/15/17 22:37 Adiel Luna is a 62 year old male, whose past medical history includes alcohol abuse, who presents to the emergency department brought in by EMS for alcohol intoxication. Patient was found in the middle of the street and escorted back to the hospital by police. Patient admits to drinking alcohol but is reluctant to quantify how much. Patient without any obvious evidence of trauma to the face. Patient able to answer questions when aroused. Patient denies any somatic complaints. Symptom Onset: Gradual Symptom Course: Unchanged Activities at Onset: Light Context: Street Past Medical History - Provider Review Nursing Documentation Reviewed: Yes - Infectious Disease Hx of Infectious Diseases: None - Cardiac Hx Cardiac Disorders: No - Pulmonary Hx Respiratory Disorders: No - Neurological Hx Neurological Disorder: Yes Other/Comment: Brain injury - HEENT Hx HEENT Disorder: No - Renal Hx Renal Disorder: No - Endocrine/Metabolic Hx Endocrine Disorders: No - Hematological/Oncological Hx Blood Disorders: No - Integumentary Hx Dermatological Disorder: No - Musculoskeletal/Rheumatological Hx Musculoskeletal Disorders: Yes Hx Arthritis: Yes Hx Falls: Yes Hx Unsteady Gait: Yes - Gastrointestinal Hx Gastrointestinal Disorders: No - Genitourinary/Gynecological Hx Genitourinary Disorders: No - Psychiatric Hx Psychophysiologic Disorder: No Hx Substance Use: No - Surgical History Hx Orthopedic Surgery: Yes - Anesthesia Hx Anesthesia: No Hx Anesthesia Reactions: No Hx Malignant Hyperthermia: No Family/Social History - Physician Review Nursing Documentation Reviewed: Yes Family/Social History: Unknown Family HX Smoking Status: Current Some Days Smoker Hx Alcohol Use: Yes Hx Substance Use: No Allergies/Home Meds Allergies/Adverse Reactions: Allergies No Known Allergies Allergy (Verified 10/15/17 22:46) Home Medications: Home Meds Medication Instructions Recorded Confirmed Aspirin [Ecotrin] 81 mg PO DAILY 10/09/17 10/14/17 Multivit-Min/Iron/Folic Acid/K 1 tab PO DAILY 10/09/17 10/14/17 [Adults Multivitamin Tablet] Pantoprazole Sodium [Protonix] 40 mg PO DAILY 10/09/17 10/14/17 Sertraline [Zoloft] 50 mg PO HS 10/09/17 10/14/17 Thiamine HCl [B-1] 1 tab PO DAILY 10/09/17 10/14/17 Review of Systems - Physician Review All systems were reviewed & negative as marked: Yes - Review of Systems Constitutional: Normal. absent: Fevers Eyes: Normal ENT: Normal Respiratory: Normal. absent: SOB, Cough Cardiovascular: Normal. absent: Chest Pain Gastrointestinal: Normal. absent: Abdominal Pain, Diarrhea, Nausea, Vomiting Genitourinary Male: Normal. absent: Dysuria, Frequency, Hematuria, Urinary Output Changes Musculoskeletal: Normal. absent: Back Pain, Neck Pain Skin: Normal. absent: Rash Neurological: Normal. absent: Headache, Dizziness Endocrine: Normal Hemo/Lymphatic: Normal Psychiatric: Normal Physical Exam Vital Signs Reviewed: Yes Temperature: Afebrile Blood Pressure: Normal Pulse: Regular Respiratory Rate: Normal Appearance: Positive for: Well-Appearing, Non-Toxic, Comfortable Pain Distress: None Mental Status: Positive for: other (Alert) - Systems Exam Head: Present: Atraumatic, Normocephalic. No: Abrasion, Laceration, Other (No evidence of facial trauma) Pupils: Present: PERRL Extroacular Muscles: Present: EOMI Conjunctiva: Present: Normal Mouth: Present: Moist Mucous Membranes Neck: Present: Normal Range of Motion Respiratory/Chest: Present: Clear to Auscultation, Good Air Exchange. No: Respiratory Distress, Accessory Muscle Use Cardiovascular: Present: Regular Rate and Rhythm, Normal S1, S2. No: Murmurs Abdomen: No: Tenderness, Distention, Peritoneal Signs Back: Present: Normal Inspection Upper Extremity: Present: Normal Inspection. No: Cyanosis, Edema Lower Extremity: Present: Normal Inspection. No: Edema Neurological: Present: GCS=15, CN II-XII Intact, Speech Normal Skin: Present: Warm, Dry, Normal Color. No: Rashes, Laceration, Abrasion Psychiatric: Present: Alert, Normal Insight, Normal Concentration Medical Decision Making ED Course and Treatment: 10/15/17 22:37 Impression: 62 year old male brought in for alcohol intoxication tonight. Differential Diagnosis included but are not limited to: alcohol intoxication Plan: -- Reassess and disposition Prior Visits: Notes and results from previous visits were reviewed. Patient was seen in the emergency department yesterday evening for similar complaints and discharged this morning. Progress Notes: - Scribe Statement The provider has reviewed the documentation as recorded by the Robb Reynolds Provider Scribe Attestation: All medical record entries made by the Scribe were at my direction and personally dictated by me. I have reviewed the chart and agree that the record accurately reflects my personal performance of the history, physical exam, medical decision making, and the department course for this patient. I have also personally directed, reviewed, and agree with the discharge instructions and disposition. Disposition/Present on Arrival - Present on Arrival Any Indicators Present on Arrival: No History of DVT/PE: No History of Uncontrolled Diabetes: No Urinary Catheter: No History Surgical Site Infection Following: None - Disposition Have Diagnosis and Disposition been Completed?: Yes Diagnosis: Alcohol intoxication Disposition: HOME/ ROUTINE Disposition Time: 06:05 Patient Plan: Discharge Condition: IMPROVED Discharge Instructions (ExitCare): Alcohol Abuse and Alcoholism (DC) Referrals: Sania Persaud MD [Medical Doctor] - Follow up with primary [facility] – [place] [Outside] - Follow up with primary Forms: [employer] (Kyrgyz)
[2017-10-16 06:22] VITALS: BP 128/70; PULSE 98; RESP 20; O2SAT 98
== END 2017-10-16 06:22 | disposition home or self-care (01) ==
LOC: ED 21:16
DX: F10.129 Alcohol abuse with intoxication, unspecified (principal)

== ENCOUNTER 2017-11-06 21:19 | Emergency (ER) | payer MEDICARE, MEDICAID ==
[2017-11-06 21:23] VITALS: BMI 25.7
[2017-11-06 21:42] VITALS: RESP 18; TEMP 98.7
--- NOTE | 2017-11-06 21:52 | ED PDOC ---
Arrival/HPI - General Chief Complaint: Alcohol Ingestion Time Seen by Provider: 11/06/17 21:21 Historian: Patient - History of Present Illness Narrative History of Present Illness (Text): 11/06/17 21:49 A 62 year old male, whose past medical history includes alcohol abuse, is brought into the emergency department via EMS after patient was found resting, sitting outdoors. Patient admitted to having been drinking some alcohol this evening. He states that he was resting before taking a long walk home. He denies denies fevers, chills, headache, dizziness, chest pain, shortness of breath, dyspnea on exertion, cough, abdominal pain, nausea, vomiting, diarrhea, back pain, neck pain, urinary/bowel changes, or any other somatic complaint. Time/Duration: Prior to Arrival Symptom Onset: Sudden Symptom Course: Unchanged Activities at Onset: Rest, Light Context: Street Past Medical History - Provider Review Nursing Documentation Reviewed: Yes - Infectious Disease Hx of Infectious Diseases: None - Cardiac Hx Cardiac Disorders: No - Pulmonary Hx Respiratory Disorders: No - Neurological Hx Neurological Disorder: Yes Other/Comment: Brain injury - HEENT Hx HEENT Disorder: No - Renal Hx Renal Disorder: No - Endocrine/Metabolic Hx Endocrine Disorders: No - Hematological/Oncological Hx Blood Disorders: No - Integumentary Hx Dermatological Disorder: No - Musculoskeletal/Rheumatological Hx Musculoskeletal Disorders: Yes Hx Arthritis: Yes Hx Falls: Yes Hx Unsteady Gait: Yes - Gastrointestinal Hx Gastrointestinal Disorders: No - Genitourinary/Gynecological Hx Genitourinary Disorders: No - Psychiatric Hx Psychophysiologic Disorder: No Hx Substance Use: No - Surgical History Hx Orthopedic Surgery: Yes - Anesthesia Hx Anesthesia: No Hx Anesthesia Reactions: No Hx Malignant Hyperthermia: No Family/Social History - Physician Review Nursing Documentation Reviewed: Yes Family/Social History: No Known Family HX Smoking Status: Current Some Days Smoker Hx Alcohol Use: Yes Hx Substance Use: No Allergies/Home Meds Allergies/Adverse Reactions: Allergies No Known Allergies Allergy (Verified 11/06/17 21:25) Home Medications: Home Meds Medication Instructions Recorded Confirmed Aspirin [Ecotrin] 81 mg PO DAILY 10/09/17 11/06/17 Multivit-Min/Iron/Folic Acid/K 1 tab PO DAILY 10/09/17 11/06/17 [Adults Multivitamin Tablet] Pantoprazole Sodium [Protonix] 40 mg PO DAILY 10/09/17 11/06/17 Sertraline [Zoloft] 50 mg PO HS 10/09/17 11/06/17 Thiamine HCl [B-1] 1 tab PO DAILY 10/09/17 11/06/17 Review of Systems - Physician Review All systems were reviewed & negative as marked: Yes - Review of Systems Constitutional: absent: Fevers Respiratory: absent: SOB, Cough Cardiovascular: absent: Chest Pain, [place] Gastrointestinal: absent: Abdominal Pain, Stool Changes, Diarrhea, Nausea, Vomiting Genitourinary Male: absent: Urinary Output Changes Musculoskeletal: absent: Back Pain, Neck Pain Neurological: absent: Headache, Dizziness Physical Exam Vital Signs Reviewed: Yes Vital Signs Temp Pulse Resp BP Pulse Ox 11/06/17 21:41 98.7 F 80 18 115/78 98 Temperature: Afebrile Blood Pressure: Normal Pulse: Regular Respiratory Rate: Normal Appearance: Positive for: Well-Appearing, Non-Toxic, Comfortable Pain Distress: None Mental Status: Positive for: Alert and Oriented X 3 Finger Stick Blood Glucose: 117 - Systems Exam Head: Present: Atraumatic, Normocephalic Pupils: Present: PERRL Extroacular Muscles: Present: EOMI Conjunctiva: Present: Normal Mouth: Present: Moist Mucous Membranes Neck: Present: Normal Range of Motion Respiratory/Chest: Present: Clear to Auscultation, Good Air Exchange. No: Respiratory Distress, Accessory Muscle Use Cardiovascular: Present: Regular Rate and Rhythm, Normal S1, S2. No: Murmurs Abdomen: No: Tenderness, Distention, Peritoneal Signs Back: Present: Normal Inspection Upper Extremity: Present: Normal Inspection. No: Cyanosis, Edema Lower Extremity: Present: Normal Inspection. No: Edema Neurological: Present: GCS=15, CN II-XII Intact, Speech Normal Skin: Present: Warm, Dry, Normal Color. No: Rashes Psychiatric: Present: Alert, Oriented x 3, Normal Insight, Normal Concentration, Intoxicated (Mildly inebriated) Medical Decision Making ED Course and Treatment: 11/06/17 21:52 Impression: A 62 year old male is brought into the emergency department for further evaluation after being found resting sitting outdoors. He admitted to having alcohol this evening. Plan: -- Reassess and disposition Progress Notes: 11/07/17 06:27 Patient is awake alert sober with steady gait in ED. - Lab Interpretations Lab Results: Lab Results 11/06/17 21:37: POC Glucose (mg/dL) 117 H - Scribe Statement The provider has reviewed the documentation as recorded by the Gómezibcale Cooper Provider Gómezibe Attestation: All medical record entries made by the Scribe were at my direction and personally dictated by me. I have reviewed the chart and agree that the record accurately reflects my personal performance of the history, physical exam, medical decision making, and the department course for this patient. I have also personally directed, reviewed, and agree with the discharge instructions and disposition. Disposition/Present on Arrival - Present on Arrival Any Indicators Present on Arrival: No History of DVT/PE: No History of Uncontrolled Diabetes: No Urinary Catheter: No History of Decub. Ulcer: No History Surgical Site Infection Following: None - Disposition Have Diagnosis and Disposition been Completed?: Yes Diagnosis: Alcohol intoxication Disposition: HOME/ ROUTINE Disposition Time: 06:26 Patient Plan: Discharge Condition: GOOD Discharge Instructions (ExitCare): Alcohol Abuse and Alcoholism (DC) Referrals: Alcoholics Anonymous [Outside] - Follow up with primary Forms: [employer] (Solomon Islander)
[2017-11-07 06:36] VITALS: BP 118/76; PULSE 82; O2SAT 100
== END 2017-11-07 06:39 | disposition home or self-care (01) ==
LOC: ED 21:19
DX: F10.129 Alcohol abuse with intoxication, unspecified (principal)

== ENCOUNTER 2017-11-15 22:16 | Emergency (ER) | payer MEDICAID, MEDICARE ==
[2017-11-15 22:16] VITALS: BMI 25.7
--- NOTE | 2017-11-15 23:44 | ED PDOC ---
Arrival/HPI - General Chief Complaint: Alcohol Ingestion Time Seen by Provider: 11/15/17 22:27 Historian: Patient, EMS - History of Present Illness Narrative History of Present Illness (Text): 11/15/17 23:41 62 year old male, whose past medical history includes alcohol abuse, is brought into the emergency department via EMS for public intoxication tonight. Patient found drinking in the street tonight. He admits to drinking tonight. Patient denies any somatic complaints. Patient denies any fever, chills, chest pain, shortness of breath, nausea, vomiting, diarrhea, urinary symptoms, back pain, neck pain, headache, dizziness, or any other complaints. Symptom Onset: Gradual Symptom Course: Unchanged Activities at Onset: Light Context: Street Past Medical History - Provider Review Nursing Documentation Reviewed: Yes - Infectious Disease Hx of Infectious Diseases: None - Cardiac Hx Cardiac Disorders: No - Pulmonary Hx Respiratory Disorders: No - Neurological Hx Neurological Disorder: Yes Other/Comment: Brain injury - HEENT Hx HEENT Disorder: No - Renal Hx Renal Disorder: No - Endocrine/Metabolic Hx Endocrine Disorders: No - Hematological/Oncological Hx Blood Disorders: No - Integumentary Hx Dermatological Disorder: No - Musculoskeletal/Rheumatological Hx Musculoskeletal Disorders: Yes Hx Arthritis: Yes Hx Falls: Yes Hx Unsteady Gait: Yes - Gastrointestinal Hx Gastrointestinal Disorders: No - Genitourinary/Gynecological Hx Genitourinary Disorders: No - Psychiatric Hx Psychophysiologic Disorder: No Hx Substance Use: No - Surgical History Hx Orthopedic Surgery: Yes - Anesthesia Hx Anesthesia: No Hx Anesthesia Reactions: No Hx Malignant Hyperthermia: No Family/Social History - Physician Review Nursing Documentation Reviewed: Yes Family/Social History: No Known Family HX Smoking Status: Current Some Days Smoker Hx Alcohol Use: Yes Hx Substance Use: No Allergies/Home Meds Allergies/Adverse Reactions: Allergies No Known Allergies Allergy (Verified 11/06/17 21:25) Home Medications: Home Meds Medication Instructions Recorded Confirmed Multivit-Min/Iron/Folic Acid/K 1 tab PO DAILY 10/09/17 11/06/17 [Adults Multivitamin Tablet] Pantoprazole Sodium [Protonix] 40 mg PO DAILY 10/09/17 11/06/17 RX: Aspirin [Ecotrin] 81 mg PO DAILY 10/09/17 11/06/17 RX: Thiamine HCl [B-1] 1 tab PO DAILY 10/09/17 11/06/17 Sertraline [Zoloft] 50 mg PO HS 10/09/17 11/06/17 Review of Systems - Physician Review All systems were reviewed & negative as marked: Yes - Review of Systems Constitutional: absent: Fevers, Other (Chills) Respiratory: absent: SOB Cardiovascular: absent: Chest Pain Gastrointestinal: absent: Diarrhea, Nausea, Vomiting Genitourinary Male: absent: Dysuria, Frequency, Hematuria Musculoskeletal: absent: Back Pain, Neck Pain Neurological: absent: Headache, Dizziness Physical Exam Vital Signs Reviewed: Yes Appearance: Positive for: Well-Appearing, Non-Toxic, Comfortable Pain Distress: None Mental Status: Positive for: Alert and Oriented X 3 (intoxicated) - Systems Exam Head: Present: Atraumatic, Normocephalic Pupils: Present: PERRL Extroacular Muscles: Present: EOMI Conjunctiva: Present: Normal Mouth: Present: Moist Mucous Membranes Neck: Present: Normal Range of Motion Respiratory/Chest: Present: Clear to Auscultation, Good Air Exchange. No: Respi ratory Distress, Accessory Muscle Use Cardiovascular: Present: Regular Rate and Rhythm, Normal S1, S2. No: Murmurs Abdomen: No: Tenderness, Distention, Peritoneal Signs Back: Present: Normal Inspection Upper Extremity: Present: Normal Inspection. No: Cyanosis, Edema Lower Extremity: Present: Normal Inspection. No: Edema Neurological: Present: GCS=15, CN II-XII Intact Skin: Present: Warm, Dry, Normal Color. No: Rashes Psychiatric: Present: Alert, Oriented x 3, Normal Insight, Normal Concentration, Intoxicated Medical Decision Making ED Course and Treatment: 11/15/17 23:43 Impression: 62 year old male presents for public intoxication tonight. Plan: -- Sobriety -- Reassess and disposition Prior Visits: Notes and results from previous visits were reviewed. Patient was last seen in the emergency department on 11/06/17 for public intoxication. Patient was discharged. Progress Notes: 11/16/17 06:18 Patient with steady gait,sober in ED - Scribe Statement The provider has reviewed the documentation as recorded by the Gómezibcale Breaux Provider Scribe Attestation: All medical record entries made by the Gómezibcale were at my direction and personally dictated by me. I have reviewed the chart and agree that the record accurately reflects my personal performance of the history, physical exam, medical decision making, and the department course for this patient. I have also personally directed, reviewed, and agree with the discharge instructions and disposition. Disposition/Present on Arrival - Present on Arrival Any Indicators Present on Arrival: No History of DVT/PE: No History of Uncontrolled Diabetes: No Urinary Catheter: No History of Decub. Ulcer: No History Surgical Site Infection Following: None - Disposition Have Diagnosis and Disposition been Completed?: Yes Diagnosis: Alcohol intoxication Disposition: HOME/ ROUTINE Disposition Time: 06:17 Patient Plan: Discharge Condition: STABLE Discharge Instructions (ExitCare): Alcohol Abuse and Alcoholism (DC) Referrals: Alcoholics Anonymous [Outside] - Follow up with primary Forms: [employer] (Portuguese)
[2017-11-16 06:24] VITALS: BP 124/76; PULSE 84; RESP 18; TEMP 98.2; O2SAT 98
== END 2017-11-16 06:25 | disposition home or self-care (01) ==
LOC: ED 22:16
DX: F10.129 Alcohol abuse with intoxication, unspecified (principal)

== ENCOUNTER 2017-12-09 23:55 | Emergency (ER) | payer MEDICARE, MEDICAID ==
[2017-12-10 00:04] VITALS: BMI 26.4
--- NOTE | 2017-12-10 00:28 | ED PDOC ---
Arrival/HPI - General Historian: Patient - History of Present Illness Narrative History of Present Illness (Text): 12/10/17 00:25 62yo male with history of alcohol abuse who present with complaint of facial trauma 2hours ago. States he fell on uneven side walk and hit face on the ground sustaining abrasion. States he came to ED because he couldn't stop the bleeding from the abrasion on his right eyebrow area. States the bleeding is now controlled. he denies headache, facial pain, dizziness, visual changes, focal weakness, any other complaint. <Chidi Rutledge A - Last Filed: 12/10/17 01:33> <Nolan Mota - Last Filed: 12/10/17 01:46> - General Chief Complaint: Trauma Time Seen by Provider: 12/09/17 23:58 Past Medical History - Provider Review Nursing Documentation Reviewed: Yes - Infectious Disease Hx of Infectious Diseases: None - Cardiac Hx Cardiac Disorders: No - Pulmonary Hx Respiratory Disorders: No - Neurological Hx Neurological Disorder: Yes Other/Comment: Brain injury - HEENT Hx HEENT Disorder: No - Renal Hx Renal Disorder: No - Endocrine/Metabolic Hx Endocrine Disorders: No - Hematological/Oncological Hx Blood Disorders: No - Integumentary Hx Dermatological Disorder: No - Musculoskeletal/Rheumatological Hx Musculoskeletal Disorders: Yes Hx Arthritis: Yes Hx Falls: Yes Hx Unsteady Gait: Yes - Gastrointestinal Hx Gastrointestinal Disorders: No - Genitourinary/Gynecological Hx Genitourinary Disorders: No - Psychiatric Hx Psychophysiologic Disorder: No Hx Substance Use: No - Surgical History Hx Orthopedic Surgery: Yes - Anesthesia Hx Anesthesia: No Hx Anesthesia Reactions: No Hx Malignant Hyperthermia: No <Chidi Rutledge A - Last Filed: 12/10/17 01:33> Family/Social History - Physician Review Nursing Documentation Reviewed: Yes Family/Social History: Unknown Family HX Smoking Status: Current Some Days Smoker Hx Alcohol Use: Yes Frequency of alcohol use: Few days per week Hx Substance Use: No <Chidi Rutledge A - Last Filed: 12/10/17 01:33> Allergies/Home Meds <Chidi Rutledge A - Last Filed: 12/10/17 01:33> <Nolan Mota - Last Filed: 12/10/17 01:46> Allergies/Adverse Reactions: Allergies No Known Allergies Allergy (Verified 11/06/17 21:25) Home Medications: Home Meds Medication Instructions Recorded Confirmed Aspirin [Ecotrin] 81 mg PO DAILY 10/09/17 11/06/17 Multivit-Min/Iron/Folic Acid/K 1 tab PO DAILY 10/09/17 11/06/17 [Adults Multivitamin Tablet] Pantoprazole Sodium [Protonix] 40 mg PO DAILY 10/09/17 11/06/17 Sertraline [Zoloft] 50 mg PO HS 10/09/17 11/06/17 Thiamine HCl [B-1] 1 tab PO DAILY 10/09/17 11/06/17 Review of Systems - Physician Review All systems were reviewed & negative as marked: Yes - Review of Systems Constitutional: Normal Eyes: Normal ENT: Normal Respiratory: Normal Cardiovascular: Normal Gastrointestinal: Normal Genitourinary Male: Normal Musculoskeletal: Normal Skin: Other (Abrasion noted on left eyebrow) Neurological: Normal Endocrine: Normal Hemo/Lymphatic: Normal Psychiatric: Normal <Diru,Happiness A - Last Filed: 12/10/17 01:33> Physical Exam Vital Signs Reviewed: Yes Vital Signs Temp Pulse Resp BP Pulse Ox 12/10/17 00:07 98.5 F 72 18 134/84 100 Temperature: Afebrile Blood Pressure: Normal Pulse: Regular Respiratory Rate: Normal Appearance: Positive for: Well-Appearing, Non-Toxic, Comfortable Pain Distress: None Mental Status: Positive for: Alert and Oriented X 3 - Systems Exam Head: Present: Atraumatic, Normocephalic Pupils: Present: PERRL Extroacular Muscles: Present: EOMI, Other (Mild swelling of left sided eyebrow noted with linear small close abrasion noted) Conjunctiva: Present: Normal Mouth: Present: Moist Mucous Membranes Neck: Present: Normal Range of Motion Respiratory/Chest: Present: Clear to Auscultation, Good Air Exchange. No: Respiratory Distress, Accessory Muscle Use Cardiovascular: Present: Regular Rate and Rhythm, Normal S1, S2. No: Murmurs Abdomen: No: Tenderness, Distention, Peritoneal Signs Back: Present: Normal Inspection Upper Extremity: Present: Normal Inspection. No: Cyanosis, Edema Lower Extremity: Present: Normal Inspection. No: Edema Neurological: Present: GCS=15, CN II-XII Intact, Speech Normal Skin: Present: Warm, Dry, Normal Color. No: Rashes Psychiatric: Present: Alert, Oriented x 3, Normal Insight, Normal Concentration <Chidi Rutledge - Last Filed: 12/10/17 01:33> Vital Signs Temp Pulse Resp BP Pulse Ox 12/10/17 00:07 98.5 F 72 18 134/84 100 <NakulNolan - Last Filed: 12/10/17 01:46> Medical Decision Making ED Course and Treatment: 12/10/17 01:33 PT presented for stated history. He denied pain in ED. He have abrasion over his left eyebrow with no bleeding. Wound cleaned with betadine and bacitracine applied Head CT was ordered to r/o any internal derangement Head CT IMPRESSION: 1. Age-appropriate cerebellar and cerebral atrophy. 2. Mild chronic microvascular disease. 3. No evidence of acute intracranial pathology. Result was DW the pt. He was ambulatory, AAO x3 in Ed and in no distress. 12/10/17 01:36 - RAD Interpretation Radiology Orders: 12/10/17 00:12 HEAD W/O CONTRAST [CT] Stat <Chidi Rutledge - Last Filed: 12/10/17 01:33> - RAD Interpretation Radiology Orders: 12/10/17 00:12 HEAD W/O CONTRAST [CT] Stat <Nolan Mota - Last Filed: 12/10/17 01:46> - PA / KILN PACKER / Resident Statement SURJIT has reviewed & agrees with the documentation as recorded. SURJIT has examined the patient and agrees with the treatment plan. <Nolan Mota - Last Filed: 12/10/17 01:46> Disposition/Present on Arrival - Present on Arrival Any Indicators Present on Arrival: No History of DVT/PE: No History of Uncontrolled Diabetes: No Urinary Catheter: No History of Decub. Ulcer: No History Surgical Site Infection Following: None - Disposition Have Diagnosis and Disposition been Completed?: Yes Disposition Time: 01:35 Patient Plan: Discharge <Chidi Rutledge - Last Filed: 12/10/17 01:33> <Nolan Mota - Last Filed: 12/10/17 01:46> - Disposition Diagnosis: Abrasion Disposition: HOME/ ROUTINE Condition: STABLE Discharge Instructions (ExitCare): Skin Abrasions Additional Instructions: Keep wound clean and dry follow up with your doctor Return to ED for any new symptoms Referrals: Praful Pedraza MD [Primary Care Provider] - Follow up with primary Forms: [employer] (Sami)
[2017-12-10 05:33] VITALS: O2SAT 96
[2017-12-10 05:34] VITALS: BP 134/76; PULSE 78; RESP 18; TEMP 98
--- NOTE | 2017-12-10 09:22 | CT ---
Date of service: 12/10/2017 PROCEDURE: CT HEAD WITHOUT CONTRAST. HISTORY: s/p trauma COMPARISON: None available. TECHNIQUE: Axial computed tomography images were obtained through the head/brain without intravenous contrast. Radiation dose: Total exam DLP = 846.87 mGy-cm. This CT exam was performed using one or more of the following dose reduction techniques: Automated exposure control, adjustment of the mA and/or kV according to patient size, and/or use of iterative reconstruction technique. FINDINGS: HEMORRHAGE: No intracranial hemorrhage. BRAIN: No mass effect or edema. Mild atrophy. Minimal microvascular changes VENTRICLES: Unremarkable. No hydrocephalus. CALVARIUM: Unremarkable. PARANASAL SINUSES: Unremarkable as visualized. No significant inflammatory changes. MASTOID AIR CELLS: Unremarkable as visualized. No inflammatory changes. OTHER FINDINGS: The report concurs with the preliminary [facility] report IMPRESSION: No acute intracranial findings
== END 2017-12-10 05:34 | disposition home or self-care (01) ==
LOC: ED 23:55
DX: S00.212A Abrasion of left eyelid and periocular area, initial encounter (principal); W01.0XXA Fall on same level from slipping, tripping and stumbling without subsequent striking against object, initial encounter; Y92.480 Sidewalk as the place of occurrence of the external cause

== ENCOUNTER 2018-06-13 13:40 | Emergency (ER) | payer MEDICAID, MEDICARE ==
[2018-06-13 14:13] VITALS: TEMP 97.6; O2SAT 99; BMI 29.2
[2018-06-13 15:06] VITALS: BP 138/79; PULSE 82; RESP 18
--- NOTE | 2018-06-13 15:28 | ED PDOC ---
Arrival/HPI - General Chief Complaint: Alcohol Ingestion Historian: Patient, EMS - History of Present Illness Narrative History of Present Illness (Text): 06/13/18 15:24 Patient is a 63 yo male presents to the Emergency Department via [facility] for history of "public intoxication" and "sleeping outside on a bench". Patient denies symptoms. He denies any pain or injury. Denies any bloody urine or stool. Denies lightheadedness or dizziness. Denies any headache. Denies suicidal or homicidal ideation. Denies tremors or shaking. Time/Duration: Prior to Arrival Past Medical History - Infectious Disease Hx of Infectious Diseases: None - Cardiac Hx Cardiac Disorders: No - Pulmonary Hx Respiratory Disorders: No - Neurological Hx Neurological Disorder: Yes Other/Comment: Brain injury - HEENT Hx HEENT Disorder: No - Renal Hx Renal Disorder: No - Endocrine/Metabolic Hx Endocrine Disorders: No - Hematological/Oncological Hx Blood Disorders: No - Integumentary Hx Dermatological Disorder: No - Musculoskeletal/Rheumatological Hx Musculoskeletal Disorders: Yes Hx Arthritis: Yes Hx Falls: Yes Hx Unsteady Gait: Yes - Gastrointestinal Hx Gastrointestinal Disorders: No - Genitourinary/Gynecological Hx Genitourinary Disorders: No - Psychiatric Hx Psychophysiologic Disorder: No Hx Substance Use: No - Surgical History Hx Orthopedic Surgery: Yes - Anesthesia Hx Anesthesia: No Hx Anesthesia Reactions: No Hx Malignant Hyperthermia: No Family/Social History Family/Social History: Unknown Family HX Smoking Status: Current Some Days Smoker Hx Alcohol Use: Yes Frequency of alcohol use: Daily Hx Substance Use: No Allergies/Home Meds Allergies/Adverse Reactions: Allergies No Known Allergies Allergy (Verified 11/06/17 21:25) Home Medications: Home Meds Medication Instructions Recorded Confirmed Aspirin [Ecotrin] 81 mg PO DAILY 10/09/17 11/06/17 Multivit-Min/Iron/Folic Acid/K 1 tab PO DAILY 10/09/17 11/06/17 [Adults Multivitamin Tablet] Pantoprazole Sodium [Protonix] 40 mg PO DAILY 10/09/17 11/06/17 Sertraline [Zoloft] 50 mg PO HS 10/09/17 11/06/17 Thiamine HCl [B-1] 1 tab PO DAILY 10/09/17 11/06/17 Review of Systems - Review of Systems Constitutional: absent: Fevers Eyes: absent: Vision Changes Respiratory: absent: SOB Cardiovascular: absent: Chest Pain, Palpitations, Edema Gastrointestinal: absent: Abdominal Pain, Nausea, Vomiting Genitourinary Male: absent: Dysuria Musculoskeletal: absent: Back Pain Skin: absent: Rash Neurological: absent: Headache, Dizziness, Focal Weakness, Gait Changes, Speech Changes, Disequilibrium, Seizure Endocrine: absent: Polyuria Hemo/Lymphatic: absent: Easy Bleeding Psychiatric: absent: Depression, Suicidal Ideation Physical Exam Vital Signs Reviewed: Yes Vital Signs Temp Pulse Resp BP Pulse Ox 06/13/18 15:06 82 18 138/79 99 06/13/18 14:12 97.6 F 06/13/18 14:02 74 17 126/65 99 Temperature: Afebrile Blood Pressure: Normal Pulse: Regular Respiratory Rate: Normal Appearance: Positive for: Unkept Pain Distress: None Mental Status: Positive for: Alert and Oriented X 3 Finger Stick Blood Glucose: 86 - Systems Exam Head: Present: Atraumatic. No: Tenderness, Swelling Pupils: Present: PERRL Extroacular Muscles: Present: EOMI Mouth: Present: Moist Mucous Membranes. No: Dry, Normal Teeth Pharnyx: No: ERYTHEMA Nose (Internal): Present: Normal Inspection, No Active Bleeding Neck: Present: Normal Range of Motion. No: Meningeal Signs, MIDLINE TENDERNESS Respiratory/Chest: Present: Clear to Auscultation. No: Respiratory Distress Cardiovascular: Present: Regular Rate and Rhythm Abdomen: Present: Normal Bowel Sounds. No: Tenderness Rectal: No: Gross Blood Back: No: CVA Tenderness, Midline Tenderness Upper Extremity: Present: NORMAL PULSES. No: Edema Lower Extremity: Present: NORMAL PULSES. No: Edema Neurological: Present: GCS=15, Speech Normal, Motor Func Grossly Intact, Normal Sensory Function, Normal Cerebellar Funct, Norm Deep Tendon Reflexes, Gait Normal, Memory Normal Skin: Present: Warm Psychiatric: Present: Alert, Oriented x 3, Normal Insight, Normal Concentration. No: Suicidal Ideation, Homicidal Ideation, Intoxicated Medical Decision Making ED Course and Treatment: 06/13/18 15:29 Patient presents to the Emergency Department with EMS. He denies any symptoms. He is alert, oriented, with normal speech and steady gait. Denies trauma or injury. Denies tremulousness. He does admit to "drinking a few beers" but has no slurred speech, he has a steady gait, he has no visible signs of acute trauma. He was observed in ED and was calm, cooperative, and denies symptoms. He has been counseled on risks of excessive alcohol use. He states he has a place to stay and will be discharged. Disposition/Present on Arrival - Present on Arrival Any Indicators Present on Arrival: No History of DVT/PE: No History of Uncontrolled Diabetes: No Urinary Catheter: No History of Decub. Ulcer: No History Surgical Site Infection Following: None - Disposition Have Diagnosis and Disposition been Completed?: Yes Diagnosis: Alcohol intoxication Disposition: HOME/ ROUTINE Disposition Time: 15:34 Patient Plan: Discharge Condition: GOOD Discharge Instructions (ExitCare): Alcohol Use - When Is Drinking a Problem?, Alcohol Abuse and Alcoholism (DC) Additional Instructions: For any fevers, pain, headaches, unsteadiness, bleeding, shaking, shortness of breath, new or persistent symptoms, get rechecked. Follow-up with your physician in 1-2 days. Referrals: Sania Persaud MD [Medical Doctor] - Follow up with primary [facility] [Outside] - Follow up with primary [facility] [Outside] - Follow up with primary
== END 2018-06-13 15:42 | disposition home or self-care (01) ==
LOC: ED 13:40
DX: F10.129 Alcohol abuse with intoxication, unspecified (principal)

== ENCOUNTER 2018-07-10 16:30 | Emergency (ER) | payer MEDICARE ==
[2018-07-10 16:31] VITALS: BMI 26.4
[2018-07-10 16:59] VITALS: BP 118/71; PULSE 95; RESP 18; TEMP 99; O2SAT 96
--- NOTE | 2018-07-10 17:46 | ED PDOC ---
Arrival/HPI - General Chief Complaint: Trauma Time Seen by Provider: 07/10/18 16:35 Historian: Patient, EMS - History of Present Illness Narrative History of Present Illness (Text): 07/10/18 17:43 63 year old M with pmh of ETOH abuse and skull fracture presents via EMS for ETOH intoxication. EMS report patient was found on the ground with abrasion to back of head. Patient report he only consuming one bottle of beer. He denies any LOC. Patient denies any fevers, chills, dizziness, chest pain, shortness of breath, cough, abdominal pain, nausea, vomiting, diarrhea, or any other complaint. Time/Duration: Prior to Arrival Symptom Onset: Sudden Symptom Course: Unchanged Activities at Onset: Light Context: Street Past Medical History - Provider Review Nursing Documentation Reviewed: Yes - Infectious Disease Hx of Infectious Diseases: None - Cardiac Hx Cardiac Disorders: No - Pulmonary Hx Respiratory Disorders: No - Neurological Hx Neurological Disorder: Yes Other/Comment: Brain injury - HEENT Hx HEENT Disorder: No - Renal Hx Renal Disorder: No - Endocrine/Metabolic Hx Endocrine Disorders: No - Hematological/Oncological Hx Blood Disorders: No - Integumentary Hx Dermatological Disorder: No - Musculoskeletal/Rheumatological Hx Musculoskeletal Disorders: Yes Hx Arthritis: Yes Hx Falls: Yes Hx Unsteady Gait: Yes - Gastrointestinal Hx Gastrointestinal Disorders: No - Genitourinary/Gynecological Hx Genitourinary Disorders: No - Psychiatric Hx Psychophysiologic Disorder: No Hx Substance Use: No - Surgical History Hx Orthopedic Surgery: Yes - Anesthesia Hx Anesthesia: No Hx Anesthesia Reactions: No Hx Malignant Hyperthermia: No Family/Social History - Physician Review Nursing Documentation Reviewed: Yes Family/Social History: Unknown Family HX Smoking Status: Current Some Days Smoker Hx Alcohol Use: Yes Hx Substance Use: No Allergies/Home Meds Allergies/Adverse Reactions: Allergies No Known Allergies Allergy (Verified 07/10/18 16:37) Home Medications: Home Meds Medication Instructions Recorded Confirmed Aspirin [Ecotrin] 81 mg PO DAILY 10/09/17 07/10/18 Multivit-Min/Iron/Folic Acid/K 1 tab PO DAILY 10/09/17 07/10/18 [Adults Multivitamin Tablet] Pantoprazole Sodium [Protonix] 40 mg PO DAILY 10/09/17 07/10/18 Sertraline [Zoloft] 50 mg PO HS 10/09/17 07/10/18 Thiamine HCl [B-1] 1 tab PO DAILY 10/09/17 07/10/18 Review of Systems - Physician Review All systems were reviewed & negative as marked: Yes - Review of Systems ENT: absent: Sore Throat, Rhinorrhea, Epistaxis Respiratory: absent: SOB, Cough, Wheezing Cardiovascular: absent: Chest Pain, Palpitations Gastrointestinal: absent: Abdominal Pain, Diarrhea, Nausea, Vomiting, Hematochezia, Hematemesis Genitourinary Male: absent: Dysuria, Hematuria Musculoskeletal: absent: Arthralgias Skin: absent: Rash, Laceration, Abscess Neurological: absent: Dizziness Physical Exam Vital Signs Reviewed: Yes Vital Signs Temp Pulse Resp BP Pulse Ox 07/10/18 16:53 99.0 F 95 H 18 118/71 96 Temperature: Afebrile Blood Pressure: Normal Pulse: Regular Respiratory Rate: Normal Appearance: Positive for: Well-Appearing, Non-Toxic, Comfortable, Other (Patient reek of ETOH) Pain Distress: None Mental Status: Positive for: Alert and Oriented X 3 - Systems Exam Head: Present: Normocephalic, Abrasion (back of head) Pupils: Present: PERRL Extroacular Muscles: Present: EOMI Conjunctiva: Present: Normal Mouth: Present: Moist Mucous Membranes Neck: Present: Normal Range of Motion Respiratory/Chest: Present: Clear to Auscultation, Good Air Exchange. No: Respiratory Distress, Accessory Muscle Use Cardiovascular: Present: Regular Rate and Rhythm, Normal S1, S2. No: Murmurs Abdomen: No: Tenderness, Distention, Peritoneal Signs Back: Present: Normal Inspection Upper Extremity: Present: Normal Inspection. No: Cyanosis, Edema Lower Extremity: Present: Normal Inspection. No: Edema Neurological: Present: GCS=15, CN II-XII Intact, Speech Normal Skin: Present: Warm, Dry, Normal Color. No: Rashes Psychiatric: Present: Alert, Oriented x 3, Normal Insight, Normal Concentration Medical Decision Making ED Course and Treatment: 07/10/18 17:59 Impression: 63 year old M presents via EMS for ETOH intoxication Plan: -- Ativan -- Cervical Spine CT w/o contrast -- Head CT w/o contrast -- Reassess and disposition Progress Notes: 07/10/18 19:28 Patient's family member arrives at the bedside stating she will come back for patient after settling things with her sister at home at 20:00. Plan communicated to nurse. Patient noted to be restless and not cooperating with multiple requests to stay in bed. Sedation ordered. Patient endorsed to Dr. Laughlin who will resume the patient's care. - RAD Interpretation Radiology Orders: 07/10/18 16:50 CERVICAL SPINE W/O CONTRAST [CT] Stat HEAD W/O CONTRAST [CT] Stat - Scribe Statement The provider has reviewed the documentation as recorded by the Robb Cid All medical record entries made by the Gómezibcale were at my direction and personally dictated by me. I have reviewed the chart and agree that the record accurately reflects my personal performance of the history, physical exam, medical decision making, and the department course for this patient. I have also personally directed, reviewed, and agree with the discharge instructions and disposition. Disposition/Present on Arrival - Present on Arrival History of DVT/PE: No History of Uncontrolled Diabetes: No Urinary Catheter: No History of Decub. Ulcer: No History Surgical Site Infection Following: None - Disposition Referrals: PCP,NO [Primary Care Provider] - Follow up with primary Forms: [employer] (Sami)
--- NOTE | 2018-07-10 22:26 | ED PDOC ---
Physical Exam Vital Signs Temp Pulse Resp BP Pulse Ox 07/10/18 16:53 99.0 F 95 H 18 118/71 96 Medical Decision Making ED Course and Treatment: 07/10/18 19:23 Case signed to me by Dr. Rogel pending CT head, CT cervical spine, and reassessment/dispo. EXAM: CT Head Without IV contrast. Electronically signed on July 10, 2018 8:06:23 PM EDT by: Alvin Mosley M.D. IMPRESSION: No acute intracranial abnormality. CT of the cervical spine Electronically signed on July 10, 2018 8:41:34 PM EDT by: Claudy Stovall M.D., Impression: 1. No acute fracture or traumatic injury. 2. Mild degenerative disc disease at C5/C6 and C6/C7. 07/10/18 21:56 Patient's family arrived to picker / packer patient and take him home. Patient is ambulatory with a steady gait. Patient is stable for discharge. - RAD Interpretation Radiology Orders: 07/10/18 16:50 CERVICAL SPINE W/O CONTRAST [CT] Stat HEAD W/O CONTRAST [CT] Stat - Medication Orders Current Medication Orders: Discontinued Medications Lorazepam (Ativan) 2 mg IM ONCE ONE; Protocol Stop: 07/10/18 19:16 - Scribe Statement The provider has reviewed the documentation as recorded by the Robb Breaux Provider Scribe Attestation: All medical record entries made by the Scribe were at my direction and personally dictated by me. I have reviewed the chart and agree that the record accurately reflects my personal performance of the history, physical exam, medical decision making, and the department course for this patient. I have also personally directed, reviewed, and agree with the discharge instructions and disposition. Disposition/Present on Arrival - Present on Arrival Any Indicators Present on Arrival: No History of DVT/PE: No History of Uncontrolled Diabetes: No Urinary Catheter: No History of Decub. Ulcer: No History Surgical Site Infection Following: None - Disposition Have Diagnosis and Disposition been Completed?: Yes Diagnosis: Alcohol abuse, Head contusion Disposition: HOME/ ROUTINE Disposition Time: 20:00 Condition: IMPROVED Discharge Instructions (ExitCare): Alcohol Use - When Is Drinking a Problem?, Minor Head Injury (DC) Additional Instructions: HUGO BELTRAN, thank you for letting us take care of you today. The emergency medical care you received today was directed at your acute symptoms. If you were prescribed any medication, please fill it and take as directed. It may take several days for your symptoms to resolve. Return to the Emergency Department if your symptoms worsen, do not improve, or if you have any other problems. Please contact your doctor or call one of the physicians/clinics you have been referred to that are listed on the Patient Visit Information form that is included in your discharge packet. Bring any paperwork you were given at discharge with you along with any medications you are taking to your follow up visit. Our treatment cannot replace ongoing medical care by a primary care provider outside of the emergency department. Thank you for allowing the [facility] team to be part of your care today. Follow up with your primary care doctor in 2-3 days for re-evaluation and further management. Referrals: PCP,NO [Primary Care Provider] - Follow up with primary Forms: GTRAN (Sinhala)
--- NOTE | 2018-07-11 10:12 | CT ---
Date of service: 07/10/2018 PROCEDURE: CT HEAD WITHOUT CONTRAST. HISTORY: s/p fall COMPARISON: CT head dated 12/10/2017. TECHNIQUE: Axial computed tomography images were obtained through the head/brain without intravenous contrast. Radiation dose: Total exam DLP = 1042.87 mGy-cm. This CT exam was performed using one or more of the following dose reduction techniques: Automated exposure control, adjustment of the mA and/or kV according to patient size, and/or use of iterative reconstruction technique. FINDINGS: HEMORRHAGE: No intracranial hemorrhage. BRAIN: No mass effect or edema. Mild atrophy. Mild chronic microvascular ischemic changes. VENTRICLES: Unremarkable. No hydrocephalus. CALVARIUM: Old right supraorbital fracture. PARANASAL SINUSES: Unremarkable as visualized. No significant inflammatory changes. MASTOID AIR CELLS: Unremarkable as visualized. No inflammatory changes. OTHER FINDINGS: None. IMPRESSION: No acute intracranial pathology. Mild age-related changes. No significant interval change.
--- NOTE | 2018-07-11 10:14 | CT ---
Date of service: 07/10/2018 PROCEDURE: CT Cervical Spine without contrast HISTORY: fall COMPARISON: None available. TECHNIQUE: Axial computed tomography images were obtained of the cervical spine without the use of intravenous contrast. Coronal and sagittal reformatted images were created and reviewed. Radiation dose: Total exam DLP = 605.58 mGy-cm. This CT exam was performed using one or more of the following dose reduction techniques: Automated exposure control, adjustment of the mA and/or kV according to patient size, and/or use of iterative reconstruction technique. FINDINGS: VERTEBRAE: No fracture. Straightening of the normal lordosis. No destructive bony lesion. DISCS/SPINAL CANAL/NEURAL FORAMINA: Multilevel disc space narrowing with disc osteophyte complex formation. PARASPINAL SOFT TISSUES: Unremarkable. OTHER FINDINGS: None. IMPRESSION: No acute fracture. Multilevel degenerative changes
== END 2018-07-10 21:56 | disposition home or self-care (01) ==
LOC: ED 16:30
DX: F10.129 Alcohol abuse with intoxication, unspecified (principal); S00.93XA Contusion of unspecified part of head, initial encounter; X58.XXXA Exposure to other specified factors, initial encounter